=== PATIENT | female | born 1955 | race Caucasian/White ===

== ENCOUNTER 2016-07-27 09:53 | Emergency (ER) | payer OTHER ==
[~2016-07-27] VITALS: Ht 152.4 cm; Wt 86.0 kg
[~2016-07-27 09:53] MED LIST: CYCL1PAK PO; INSULIN SQ; IPRAAER IN; LACT PO; LAMO100 PO; LISI-357 PO; NEUR800T PO; PARO40TA PO; RISP3 PO; SIMV20 PO; TRAD5TAB PO
[2016-07-27 09:55] VITALS: BP 176/84; PULSE 88; RESP 15; TEMP 98.2; O2SAT 96
--- NOTE | 2016-07-27 10:32 | PD ---
HPI Chief Complaint: Cold / Flu Symptoms Time Seen by Provider: 10:25 Travel History International Travel<30 days: No Contact w/Intl Traveler<30days: No Traveled to known affect area: No History of Present Illness HPI 61-year-old female coming in with 3 week history of increasing cough, wheeze, and generalized weakness. Patient states she's had low-grade fevers and chills off and on. She is having a productive cough of brown mucus now. Patient has history of asthma and COPD but is nonsmoker. Patient is also type II diabetic treated with NovoLog on a sliding scale. Patient uses albuterol and another steroid inhaler she cannot remember. Patient also has had headache , postnasal drip, and ear pain. She has had sore throat for cough. He denies chest pain except for soreness from coughing. She has no nausea, vomiting, or diarrhea. She is allergic to aspirin, codeine, and penicillin. PFSH Past Medical History Hx Anticoagulant Therapy: Yes (COUMADIN) Arthritis: Yes (BILATERAL KNEES AND INDEX FINGER ON R HAND - ARTHRITIS) Asthma: Yes Bipolar Disorder: Yes Anxiety: Yes Depression: Yes Heart Rhythm Problems: No Cardiac Catheterization: No Cardiovascular Problems: Yes High Cholesterol: Yes Congestive Heart Failure: No Diabetes: Yes (INSULIN DEPENDENT) Diminished Hearing: No Diverticulitis: Yes Gastrointestinal Disorders: Yes (HX OF DIVERTICULITIS) GERD: Yes Genitourinary: Yes (BLADDER REPAIR) Headaches: Yes Kidney Stones: Yes (HAD KIDNEY STONES 10 YEARS AGO) Musculoskeletal: Yes Neurologic: Yes Psychiatric: Yes Respiratory: Yes (COPD) Immunizations Current: No Sleep Apnea: Yes (OCCURS FREQUENTLY...ON A NIGHTLY BASIS) ?: Not : 4 Para: 1 Miscarriage: 3 Past Surgical History Abdominal Surgery: Yes (EXP LAP FOR ADHESIONS X 6) Appendectomy: Yes Cholecystectomy: Yes Coronary Artery Bypass Graft: No Genitourinary Surgery: Yes (BLADDER SURG) Gynecologic Surgery: Yes Hysterectomy: Yes Neurologic Surgery: No Pacemaker: No Other Surgery: Yes Social History Alcohol Use: No Tobacco Use: Yes (305 cigars) Substance Use: No Allergies-Medications (Allergen,Severity, Reaction): Coded Allergies: Codeine (Verified Allergy, Severe, DIFFICULTY BREATHING, 07/27/16) Penicillin (Verified Allergy, Severe, Respiratory Failure, 07/27/16) Aspirin (Verified Adverse Reaction, Severe, Nausea/Vomiting, 07/27/16) Reported Meds & Prescriptions Reported Meds & Active Scripts Active Review of Systems Except as stated in HPI: all other systems reviewed are Neg General / Constitutional: Positive: Fever, Chills Eyes: No: Visual changes HENT: Positive: Headaches, Sore Throat, Rhinitis, Rhinorrhea, Congestion, Earache, No: Vertigo, Lightheadedness, Neck Stiffness, Neck Pain, Gingival Bleeding, Dental Difficulties, Ear Discharge Cardiovascular: No: Chest Pain or Discomfort Respiratory: Positive: Cough, Shortness of Breath, Wheezing, No: Orthopnea, Hemoptysis, Night Sweats, Pleuritic Pain Gastrointestinal: No: Nausea, Vomiting, Diarrhea, Abdominal Pain Genitourinary: No: Dysuria Musculoskeletal: No: Pain Skin: No Rash Neurologic: No: Weakness Psychiatric: No: Depression Endocrine: No: Polydipsia Hematologic/Lymphatic: No: Easy Bruising Physical Exam Narrative GENERAL: Patient appears ill but not septic. SKIN: Warm and no diaphoresis. Mild pallor. Mild decreased turgor. HEAD: Atraumatic. Normocephalic. EYES: Pupils equal and round. No scleral icterus. No injection or drainage. ENT: No nasal bleeding or discharge. Mucous membranes pink and moist. TMs are dull bilaterally but no injection. Patient has moderate sinus tenderness with percussion and palpation. Pharynx appears unremarkable however without injection or cobblestoning, or erythema. Airway is patent. NECK: Trachea midline. Supple and nontender without significant lymphadenopathy. CARDIOVASCULAR: Regular rate and rhythm. RESPIRATORY: No accessory muscle use. Diffuse wheezes to auscultation. No rales or rhonchi except with cough. Breath sounds equal bilaterally. GASTROINTESTINAL: Abdomen soft, non-tender, nondistended. Hepatic and splenic margins not palpable. MUSCULOSKELETAL: Extremities without clubbing, cyanosis, or edema. No obvious deformities. NEUROLOGICAL: Awake and alert. No obvious cranial nerve deficits. Motor grossly within normal limits. Five out of 5 muscle strength in the arms and legs. Normal speech. PSYCHIATRIC: Appropriate mood and affect; insight and judgment normal. Data Data Last Documented VS Vital Signs Date Time Temp Pulse Resp B/P Pulse Ox O2 Delivery O2 Flow Rate FiO2 07/27/16 09:55 98.2 88 15 176/84 96 Orders Complete Blood Count With Diff (07/27/16 10:39) Comprehensive Metabolic Panel (07/27/16 10:39) Chest, Pa & Lat (07/27/16 10:39) Ecg Monitoring (07/27/16 10:39) Iv Access Insert/Monitor (07/27/16 10:39) Oximetry (07/27/16 10:39) Oxygen Administration (07/27/16 10:39) Prednisone (Deltasone) (07/27/16 10:45) Albuterol-Ipratropium Neb (Duoneb Neb) (07/27/16 10:45) Ceftriaxone Inj (Rocephin Inj) (07/27/16 10:45) Azithromycin (Zithromax) (07/27/16 10:45) Labs Laboratory Tests Test 07/27/16 10:20 White Blood Count 7.6 TH/MM3 Red Blood Count 4.85 MIL/MM3 Hemoglobin 15.0 GM/DL Hematocrit 44.0 % Mean Corpuscular Volume 90.6 FL Mean Corpuscular Hemoglobin 31.0 PG Mean Corpuscular Hemoglobin 34.2 % Concent Red Cell Distribution Width 14.2 % Platelet Count 214 TH/MM3 Mean Platelet Volume 9.1 FL Neutrophils (%) (Auto) 64.4 % Lymphocytes (%) (Auto) 27.8 % Monocytes (%) (Auto) 6.5 % Eosinophils (%) (Auto) 0.5 % Basophils (%) (Auto) 0.8 % Neutrophils # (Auto) 4.9 TH/MM3 Lymphocytes # (Auto) 2.1 TH/MM3 Monocytes # (Auto) 0.5 TH/MM3 Eosinophils # (Auto) 0.0 TH/MM3 Basophils # (Auto) 0.1 TH/MM3 CBC Comment DIFF FINAL Differential Comment Sodium Level 138 MEQ/L Potassium Level 4.1 MEQ/L Chloride Level 104 MEQ/L Carbon Dioxide Level 27.4 MEQ/L Anion Gap 7 MEQ/L Blood Urea Nitrogen 9 MG/DL Creatinine 0.77 MG/DL Estimat Glomerular Filtration 76 ML/MIN Rate Random Glucose 241 MG/DL Calcium Level 8.6 MG/DL Total Bilirubin 0.3 MG/DL Aspartate Amino Transf 15 U/L (AST/SGOT) Alanine Aminotransferase 31 U/L (ALT/SGPT) Alkaline Phosphatase 114 U/L Total Protein 6.8 GM/DL Albumin 3.4 GM/DL MDM Medical Decision Making Medical Screen Exam Complete: Yes Emergency Medical Condition: Yes Differential Diagnosis Bronchitis, acute on chronic. Wheezing. Possible pneumonia. Narrative Course Patient is medically stable at time of exam. Random glucose fingerstick is 230. Labs ordered including CBC and CMP. Patient is given 40 mg prednisone by mouth. She is given DuoNeb 3 every 15 minutes. Patient is given azithromycin 100 mg by mouth. Patient is given Rocephin 1000 mg IM. Chest x-ray PA and lateral is ordered. Chest x-ray shows diffuse congestion without obvious pneumonia or atelectasis. Per radiologist. Patient is felt stable to be discharged home with azithromycin 500 mg daily for the next 5 days. Patient is to take prednisone 20 mg daily for the next 7 days. Patient is to use albuterol metered-dose inhaler 2 puffs every 4 hours as needed for wheezing. Patient is to follow with her primary care physician in the next several days to ensure improvement. Patient may return to emergency Department with worsening symptoms if necessary. Diagnosis Primary Impression: Acute wheezy bronchitis Referrals: Primary Care Physician Patient Instructions: General Instructions Additional Instructions: Chest x-ray shows diffuse congestion without obvious pneumonia or atelectasis. Per radiologist. Patient is felt stable to be discharged home with azithromycin 500 mg daily for the next 5 days. Patient is to take prednisone 20 mg daily for the next 7 days. Patient is to use albuterol metered-dose inhaler 2 puffs every 4 hours as needed for wheezing. Patient is to follow with her primary care physician in the next several days to ensure improvement. Patient may return to emergency Department with worsening symptoms if necessary. Med/Other Pt SpecificInfo: Prescription(s) given Disposition: DISCHARGE HOME Condition: Stable Philippe Jean Jul 27, 2016 10:32
[2016-07-27] MEDS ORDERED: AZITHROMYCIN 250 MG TAB PO ONE (10:45)
[2016-07-27] MEDS ORDERED: predniSONE 20 MG TAB PO ONE (10:45)
[2016-07-27] MEDS: RESP: ALBUTEROL 2.5 MG/IPRATROPIUM 0.5 MG NEB (SCH) INH ×2 (11:03→11:04)
[2016-07-27 11:36] LABS: AUTOMATED NEUTROPHIL # 4.9 TH/MM3 (1.8-7.7); BASOPHIL # 0.1 TH/MM3 (0-0.2); BASOPHIL % 0.8 % (0.0-2.0); EOSINOPHIL % 0.5 % (0.0-4.0); HEMO FLAGS DIFF FINAL; LYMPH % 27.8 % (9.0-44.0); LYMPHOCYTE # 2.1 TH/MM3 (1.0-4.8); MEAN CELL VOLUME 90.6 FL (80.0-100.0); MEAN CORPUSCULAR HGB CONC 34.2 % (32.0-36.0); MONO % 6.5 % (0.0-8.0); NEUT % 64.4 % (16.0-70.0); PLATELET COUNT 214 TH/MM3 (150-450); RED BLOOD COUNT 4.85 MIL/MM3 (4.00-5.30); RED CELL DISTRIBUTION WIDTH 14.2 % (11.6-17.2); WHITE BLOOD COUNT 7.6 TH/MM3 (4.0-11.0)
[2016-07-27 11:54] LABS: ANION GAP 7 MEQ/L (5-15); AST (GOT) 15 U/L (15-37); BICARBONATE 27.4 MEQ/L (21.0-32.0); BLOOD UREA NITROGEN 9 MG/DL (7-18); CHLORIDE 104 MEQ/L (98-107); GLOMERULAR FILTRATION RATE 76 ML/MIN (>89); POTASSIUM 4.1 MEQ/L (3.5-5.1); SODIUM (NA) 138 MEQ/L (136-145)
[2016-07-27 12:02] LABS: ALKALINE PHOSPHATASE 114 U/L (45-117); ALT (GPT) 31 U/L (10-53); TOTAL BILIRUBIN ADULT 0.3 MG/DL (0.2-1.0)
--- NOTE | 2016-07-27 12:44 | RADRPT ---
EXAM DATE/TIME: 07/27/2016 11:01 [facility] COMPARISON: CHEST APICAL LORDOTIC ONLY (1VW), July 06, 2014, 18:24. CHEST PA & LAT, July 06, 2014, 17:18. INDICATIONS: Shortness of breath and aching. MEDICAL HISTORY: Chronic obstructive pulmonary disease. SURGICAL HISTORY: None. ENCOUNTER: Initial ACUITY: 3 weeks PAIN SCORE: 2/10 LOCATION: Bilateral chest FINDINGS: There is very mild prominence of the interstitium when compared to the previous study. Minimal apical pleural changes are again seen on the right, less apparent in the interval. Heart is normal. There is no pneumothorax. CONCLUSION: 1. Mild interstitial prominence as described above. 2. Otherwise negative. Niall Rowland MD FACR on July 27, 2016 at 12:12 Board Certified Radiologist. This report was verified electronically.
[2016-07-27] MEDS ORDERED: AZIT500T2 PO (12:48)
[2016-07-27] MEDS ORDERED: PRED20 PO (12:48)
[2016-07-27 12:53] VITALS: BP 162/87
[2016-12-12] MEDS ORDERED: EMPA1TAB PO (10:14)
[2016-12-12] MEDS ORDERED: AMLO10TA2 PO (10:14)
[2016-12-12] MEDS ORDERED: DICL75TA PO (10:14)
[2016-12-12] MEDS ORDERED: VOLT1GEL4 TP (10:14)
[2016-12-12] MEDS ORDERED: LIDO0.1O TP (10:14)
[2016-12-12] MEDS ORDERED: PARO40TA2 PO (10:14)
[2016-12-12] MEDS ORDERED: NOVOLOGSS (10:14)
[2016-12-12] MEDS ORDERED: RISP3TAB2 PO (10:14)
[2016-12-12] MEDS ORDERED: AK-T0.3S EACH EYE (10:14)
[2016-12-12] MEDS ORDERED: METR500T10 PO (10:14)
[2016-12-12] MEDS ORDERED: BUTA1TAB40 PO (10:14)
[2016-12-12] MEDS ORDERED: MUPI2OIN TOPICAL (10:14)
[2016-12-12] MEDS ORDERED: SUMA50TA2 PO (10:14)
[2016-12-12] MEDS ORDERED: NEOM0.1S4 EACH EYE (10:14)
[2016-12-12] MEDS ORDERED: MELO7.5T4 PO (10:14)
[2016-12-12] MEDS ORDERED: MECL-62 PO (10:14)
[2016-12-12] MEDS ORDERED: LAMO100T PO (10:14)
[2016-12-12] MEDS ORDERED: BUPR100T4 PO (10:14)
[2016-12-12] MEDS ORDERED: ATOR20TA15 PO (10:14)
[2016-12-12] MEDS ORDERED: BACT800T5 PO (10:14)
[2016-12-12] MEDS ORDERED: BENZ100 PO (10:14)
[2016-12-12] MEDS ORDERED: GABA300C5 PO (10:14)
[2016-12-12] MEDS ORDERED: VENTAER INH (10:14)
== END 2016-07-27 13:08 | disposition home or self-care (01) ==
LOC: NEPB 09:53
DX: J20.9 Acute bronchitis, unspecified (principal); R06.2 Wheezing; R53.1 Weakness; E11.9 Type 2 diabetes mellitus without complications; H92.03 Otalgia, bilateral; E78.00 Pure hypercholesterolemia, unspecified; G47.30 Sleep apnea, unspecified; Z72.0 Tobacco use; Z79.4 Long term (current) use of insulin; Z79.01 Long term (current) use of anticoagulants; Z87.09 Personal history of other diseases of the respiratory system; Z87.39 Personal history of other diseases of the musculoskeletal system and connective tissue; Z86.59 Personal history of other mental and behavioral disorders; Z86.79 Personal history of other diseases of the circulatory system; Z87.19 Personal history of other diseases of the digestive system; Z87.448 Personal history of other diseases of urinary system; Z86.69 Personal history of other diseases of the nervous system and sense organs
CPT/HCPCS: 71020; 80053; 85025; 94640; 94664; 96372; 99284; J0696; J7512

== ENCOUNTER 2016-08-12 21:40 | Observation (INO) | payer OTHER ==
[~2016-08-12] VITALS: Ht 152.4 cm; Wt 83.0 kg
[~2016-08-12 21:40] MED LIST changes: +AZIT500T2 PO; -CYCL1PAK PO; -INSULIN SQ; -IPRAAER IN; -LACT PO; -LAMO100 PO; -LISI-357 PO; -NEUR800T PO; -PARO40TA PO; +PRED20 PO; -RISP3 PO; -SIMV20 PO; -TRAD5TAB PO
[2016-08-12 21:41] VITALS: BP 126/72; PULSE 84; RESP 16; TEMP 98; O2SAT 95
[2016-08-12 23:03] VITALS: BP 122/74; PULSE 73; RESP 19; O2SAT 95
[2016-08-12 23:53] LABS: ANION GAP 10 MEQ/L (5-15); AST (GOT) 11 U/L (15-37); BICARBONATE 26.1 MEQ/L (21.0-32.0); BLOOD UREA NITROGEN 20 MG/DL (7-18); CHLORIDE 102 MEQ/L (98-107); GLOMERULAR FILTRATION RATE 83 ML/MIN (>89); POTASSIUM 3.8 MEQ/L (3.5-5.1); SODIUM (NA) 138 MEQ/L (136-145)
[2016-08-12 23:55] LABS: AUTOMATED NEUTROPHIL # 5.8 TH/MM3 (1.8-7.7); BASOPHIL # 0.1 TH/MM3 (0-0.2); BASOPHIL % 0.8 % (0.0-2.0); EOSINOPHIL # 0.1 TH/MM3 (0-0.4); EOSINOPHIL % 1.5 % (0.0-4.0); HEMATOCRIT 42.1 % (35.0-46.0); HEMO FLAGS DIFF FINAL; LYMPH % 29.5 % (9.0-44.0); LYMPHOCYTE # 2.8 TH/MM3 (1.0-4.8); MEAN CELL VOLUME 90.4 FL (80.0-100.0); MEAN CORPUSCULAR HGB CONC 34.2 % (32.0-36.0); MONO % 7.5 % (0.0-8.0); NEUT % 60.7 % (16.0-70.0); PLATELET COUNT 244 TH/MM3 (150-450); RED BLOOD COUNT 4.66 MIL/MM3 (4.00-5.30); RED CELL DISTRIBUTION WIDTH 14.8 % (11.6-17.2); WHITE BLOOD COUNT 9.6 TH/MM3 (4.0-11.0)
[2016-08-12 23:57] LABS: APTT (PATIENT) 26.6 SEC (24.3-30.1); INTERNATIONAL NORMALIZED RATIO 0.9 RATIO; PROTHROMBIN TIME - PATIENT 10.3 SEC (9.8-11.6)
[2016-08-12 23:58] LABS: ALKALINE PHOSPHATASE 116 U/L (45-117); ALT (GPT) 28 U/L (10-53); TOTAL BILIRUBIN ADULT 0.3 MG/DL (0.2-1.0)
[2016-08-12 23:59] LABS: CREATINE KINASE 50 U/L (26-192)
[2016-08-13] VITALS (9 sets, daily range): BP systolic 59–151; BP diastolic 62–90; PULSE 65–82; RESP 17–21; TEMP 97.9–98.8; O2SAT 93–95
--- NOTE | 2016-08-13 00:18 | PD ---
HPI Chief Complaint: Fall Time Seen by Provider: 22:40 Travel History International Travel<30 days: No Contact w/Intl Traveler<30days: No Traveled to known affect area: No History of Present Illness HPI The patient is a 61 year old female who presents to the [facility] emergency department with a history of reportedly feeling dizzy yesterday when walking from one trailer to another. The patient reports that she fell onto her left side. The patient reports that she has left-sided rib cage pain since then. She reports that she did not come to the emergency department yesterday for evaluation and she was babysitting at the time. She reports that she is normally unsteady on her feet and uses a walker for assistance, however she did not have her walker with her yesterday. She reports that she did feel lightheaded. She is unsure whether she passed out. She denies having any headache or neck pain. She denies having any extremity pain or deformity. She denies having any numbness or tingling to her extremities or new weakness or extremities today. The patient reports that she does have a chronic history of dyspnea on exertion and shortness of breath related to COPD. She continues to smoke one pack of cigarettes per day. The patient denies any recent fevers, cough, congestion, chest pain, shortness of breath, abdominal pain, vomiting, diarrhea, urinary symptoms, or neurologic symptoms. [facility] Past Medical History Narrative Medical The patient's past medical history is significant for bipolar disorder, anxiety and depression, hypertension, diabetes mellitus, history of COPD, tobacco abuse. Hx Anticoagulant Therapy: Yes (COUMADIN) Arthritis: Yes (BILATERAL KNEES AND INDEX FINGER ON R HAND - ARTHRITIS) Asthma: Yes Bipolar Disorder: Yes Anxiety: Yes Depression: Yes Heart Rhythm Problems: No Cardiac Catheterization: No Cardiovascular Problems: Yes High Cholesterol: Yes Congestive Heart Failure: No COPD: Yes Diabetes: Yes (INSULIN DEPENDENT) Patient Takes Glucophage: No Diminished Hearing: No Diverticulitis: Yes Gastrointestinal Disorders: Yes (HX OF DIVERTICULITIS) GERD: Yes Genitourinary: Yes (BLADDER REPAIR) Headaches: Yes Hypertension: Yes Kidney Stones: Yes (HAD KIDNEY STONES 10 YEARS AGO) Musculoskeletal: Yes (LOWER BACK PAIN) Neurologic: Yes Psychiatric: Yes Respiratory: Yes (COPD) Immunizations Current: No Sleep Apnea: Yes (OCCURS FREQUENTLY...ON A NIGHTLY BASIS) : 4 Para: 1 Miscarriage: 3 Past Surgical History Narrative Surgical The patient's past surgical history is significant for an appendectomy, cholecystectomy, bladder sling, hysterectomy. Abdominal Surgery: Yes (EXP LAP FOR ADHESIONS X 6) Appendectomy: Yes Cholecystectomy: Yes Coronary Artery Bypass Graft: No Genitourinary Surgery: Yes (BLADDER SURG) Gynecologic Surgery: Yes Hysterectomy: Yes Neurologic Surgery: No Pacemaker: No Other Surgery: Yes Social History Alcohol Use: No Tobacco Use: Yes (305 cigars 1PPD) Substance Use: No Allergies-Medications (Allergen,Severity, Reaction): Coded Allergies: Codeine (Verified Allergy, Severe, DIFFICULTY BREATHING, 08/12/16) Penicillin (Verified Allergy, Severe, Respiratory Failure, 08/12/16) Aspirin (Verified Adverse Reaction, Severe, Nausea/Vomiting, 08/12/16) Reported Meds & Prescriptions Reported Meds & Active Scripts Active Reported Mobic (Meloxicam) 7.5 Mg Tab 7.5 Mg PO DAILY Lamictal (Lamotrigine) 200 Mg Tab 200 Mg PO BID Risperidone 3 Mg Tab 3 Mg PO HS Review of Systems Except as stated in HPI: all other systems reviewed are Neg General / Constitutional: No: Fever Eyes: No: Visual changes HENT: Positive: Lightheadedness, No: Headaches Cardiovascular: Positive: Chest Pain or Discomfort Respiratory: Positive: Cough, Shortness of Breath Gastrointestinal: No: Abdominal Pain Genitourinary: No: Dysuria Musculoskeletal: No: Pain Skin: No Rash Neurologic: Positive: Dizziness, No: Weakness, Focal Abnormalities, Change in Mentation, Slurred Speech, Sensory Disturbance Psychiatric: No: Depression Endocrine: No: Polydipsia Hematologic/Lymphatic: No: Easy Bruising Physical Exam Narrative General: The patient is a well-developed well-nourished female who is uncomfortable appearing on examination, holding her left lateral chest. Head and Neck exam: Head is normocephalic atraumatic. Eyes: EOMI, pupils are equal round and reactive to light. Nose: Midline septum with pink mucous membranes Mouth: Dentition unremarkable. Moist mucus membranes. Posterior oropharynx is not erythematous. No tonsillar hypertrophy. Uvula midline. Airway patent. Neck: No palpable lymphadenopathy. No nuchal rigidity. No thyromegaly. Cardiovascular: Regular rate and rhythm without murmurs, gallops, or rubs. No pulse deficit to the extremities. Lungs: Clear to auscultation bilaterally. No wheezes, rhonchi, or rales. The patient has chest wall tenderness on palpation laterally over the anterior axillary line. There is no erythema or ecchymosis. No step-off or crepitus. No flail segment. Abdomen: Soft, without tenderness to palpation in all 4 quadrants of the abdomen. No guarding, rebound, or rigidity. Normal bowel sounds are audible. Extremities: No clubbing, cyanosis, or edema. No calf tenderness on palpation. Back: No spinous process tenderness to palpation. No costovertebral angle tenderness to palpation. Neurologic Exam: Cranial nerves 2-12 were intact on exam. Strength is 5/5 in all 4 extremities. No sensory deficits noted. Skin Exam: No rash noted. Intact skin that is warm and dry. Data Data Last Documented VS Vital Signs Date Time Temp Pulse Resp B/P Pulse Ox O2 Delivery O2 Flow Rate FiO2 08/12/16 23:03 73 19 122/74 95 Room Air 08/12/16 21:41 98.0 Orders Electrocardiogram (08/12/16 23:19) Complete Blood Count With Diff (08/12/16 23:19) Comprehensive Metabolic Panel (08/12/16 23:19) Creatine Kinase (Cpk) (08/12/16 23:19) Ckmb (Isoenzyme) Profile (08/12/16 23:19) Troponin I (08/12/16 23:19) B-Type Natriuretic Peptide (08/12/16 23:19) Prothrombin Time / Inr (Pt) (08/12/16 23:19) Act Partial Throm Time (Ptt) (08/12/16 23:19) Lipase (08/12/16 23:19) Urinalysis - C+S If Indicated (08/12/16 23:19) D-Dimer (08/12/16 23:19) Magnesium (Mg) (08/12/16 23:19) Ct Brain W/O Iv Contrast(Rout) (08/12/16 23:19) Iv Access Insert/Monitor (08/12/16 23:19) Ecg Monitoring (08/12/16 23:19) Oximetry (08/12/16 23:19) Ribs, Uni (W/Exp Cxr-Min 3vw) (08/12/16 ) Admit Order (Ed Use Only) (08/13/16 01:08) Labs Laboratory Tests Test 08/12/16 23:15 White Blood Count 9.6 TH/MM3 Red Blood Count 4.66 MIL/MM3 Hemoglobin 14.4 GM/DL Hematocrit 42.1 % Mean Corpuscular Volume 90.4 FL Mean Corpuscular Hemoglobin 31.0 PG Mean Corpuscular Hemoglobin 34.2 % Concent Red Cell Distribution Width 14.8 % Platelet Count 244 TH/MM3 Mean Platelet Volume 9.2 FL Neutrophils (%) (Auto) 60.7 % Lymphocytes (%) (Auto) 29.5 % Monocytes (%) (Auto) 7.5 % Eosinophils (%) (Auto) 1.5 % Basophils (%) (Auto) 0.8 % Neutrophils # (Auto) 5.8 TH/MM3 Lymphocytes # (Auto) 2.8 TH/MM3 Monocytes # (Auto) 0.7 TH/MM3 Eosinophils # (Auto) 0.1 TH/MM3 Basophils # (Auto) 0.1 TH/MM3 CBC Comment DIFF FINAL Differential Comment Sodium Level 138 MEQ/L Potassium Level 3.8 MEQ/L Chloride Level 102 MEQ/L Carbon Dioxide Level 26.1 MEQ/L Anion Gap 10 MEQ/L Blood Urea Nitrogen 20 MG/DL Creatinine 0.72 MG/DL Estimat Glomerular Filtration 83 ML/MIN Rate Random Glucose 195 MG/DL Calcium Level 8.6 MG/DL Magnesium Level 2.0 MG/DL Total Bilirubin 0.3 MG/DL Aspartate Amino Transf 11 U/L (AST/SGOT) Alanine Aminotransferase 28 U/L (ALT/SGPT) Alkaline Phosphatase 116 U/L Total Creatine Kinase 50 U/L Troponin I LESS THAN 0.02 NG/ML Total Protein 6.4 GM/DL Albumin 3.3 GM/DL Lipase 146 U/L Prothrombin Time 10.3 SEC Prothromb Time International 0.9 RATIO Ratio Activated Partial 26.6 SEC Thromboplast Time D-Dimer Quantitative (PE/DVT) 0.20 MG/L FEU B-Type Natriuretic Peptide 8 PG/ML MDM Medical Decision Making Medical Screen Exam Complete: Yes Emergency Medical Condition: Yes Medical Record Reviewed: Yes Interpretation(s) Last Impressions Carotid Artery Ultrasound 08/13/16 0000 Signed Impressions: Service Date/Time: Saturday, August 13, 2016 10:15 - CONCLUSION: Negative examination for a hemodynamically significant carotid stenosis. Niall Rowland MD Head CT 08/12/16 2319 Signed Impressions: Service Date/Time: Friday, August 12, 2016 23:53 - CONCLUSION: 1. No acute findings. Cortical volume loss. Jacinto Love MD Ribs X-Ray 08/12/16 0000 Signed Impressions: Service Date/Time: Friday, August 12, 2016 23:38 - CONCLUSION: Normal examination for a patient of this age. Jacinto Love MD Differential Diagnosis Vasovagal syncope, versus orthostasis, versus cardiac arrhythmia, versus acute coronary syndrome Narrative Course During the course of the patients emergency department visit, the patients history, examination, and differential diagnosis were reviewed with the patient. The patient had IV access obtained and blood work sent for analysis. The patient was placed on a cardiac rehabilitation program director with oximetry and blood pressure monitoring. An EKG was done on arrival. The patient's EKG shows a sinus rhythm heart rate of 70, no acute ST segment elevation or depression, T waves are inverted in V1. The patient was provided normal saline a 500 mL bolus times one. Lortab 5 mg by mouth 1. The patients laboratory studies were reviewed and remarkable for a CBC that is unremarkable, CMP is remarkable for a BUN of 20, glucose 195, AST 11, initial set of cardiac enzymes are negative, lipase 146, BNP is 8, PT PTT unremarkable, d-dimer is 0.20 decreasing the likelihood of pulmonary embolism in this patient with no other significant risk factors, urinalysis shows 300 glucose small soup Radiology studies were reviewed and remarkable for a CT scan of the brain shows no acute abnormality, rib series shows no evidence of fracture or pneumothorax. The patient will be admitted to the hospital for evaluation and treatment of syncope. The patients results were discussed with the patient, including the plan of care. I explained that further testing and/ or monitoring is indicated based on the patients history, examination, and/ or laboratory findings. Therefore, I recommended admission for additional evaluation. The patient expressed understanding and was agreeable with this plan. The patient was admitted to the hospital in stable condition and [facility] Physician Communication Physician Communication The patient's case was discussed with Dr. Connell who did agree to admit the patient for further evaluation and treatment at this time. Diagnosis Primary Impression: Syncope Qualified Code: R55 - Syncope, unspecified syncope type Additional Impression: Left-sided chest wall pain Admitting Information Admitting Physician Requests: Case Management Scripts Lidocaine Patch 12 HR 5 % Patch1 Patch TOPICAL DAILY PRN (PAIN) #1 BOX Ref 0 Remove patch after 12 hours Prov:Nehemias Rubin 08/14/16 Metformin (Glucophage)850 Mg [id number] Mg PO BIDPC #60 TAB Prov:Nehemias Rubin 08/14/16 Aubrie Nelson MD Aug 13, 2016 00:18
--- NOTE | 2016-08-13 00:21 | RADRPT ---
EXAM DATE/TIME: 08/12/2016 23:38 [facility] COMPARISON: No previous studies available for comparison. INDICATIONS : Patient states she fell yesterday, left side anterior rib pain. MEDICAL HISTORY : Chronic obstructive pulmonary disease. SURGICAL HISTORY : None. ENCOUNTER: Initial ACUITY: 2 days PAIN SCORE: 9/10 LOCATION: Bilateral chest FINDINGS: Multiple views of the left ribs were performed. There is no evidence of displaced fracture. No dest ructive lesions or areas of periosteal thickening are seen. Expiratory view of the chest is negative for pneumothorax. The mediastinal structures are midline. CONCLUSION: Normal examination for a patient of this age. Jacinto Love MD on August 13, 2016 at 0:10 Board Certified Radiologist. This report was verified electronically.
--- NOTE | 2016-08-13 00:28 | RADRPT ---
EXAM DATE/TIME: 08/12/2016 23:53 [facility] COMPARISON: No previous studies available for comparison. INDICATIONS : Patient had an episode of dizziness and fell yesterday. RADIATION DOSE: 56.35 CTDIvol (mGy) MEDICAL HISTORY : Diabetes mellitus type 2. Chronic obstructive pulmonary disease. Hypertension. SURGICAL HISTORY : None. ENCOUNTER: Initial ACUITY: 1 day PAIN SCALE: 5/10 LOCATION: cranial TECHNIQUE: Multiple contiguous axial images were obtained of the head. Using automated exposure control and adj ustment of the mA and/or kV according to patient size, radiation dose was kept as low as reasonably a chievable to obtain optimal diagnostic quality images. FINDINGS: CEREBRUM: The ventricles are normal for age. No evidence of midline shift, mass lesion, hemorrhage or acute in farction. No extra-axial fluid collections are seen. POSTERIOR FOSSA: The cerebellum and brainstem are intact. The 4th ventricle is midline. The cerebellopontine angle i s unremarkable. EXTRACRANIAL: The visualized portion of the orbits is intact. SKULL: The calvaria is intact. No evidence of skull fracture. CONCLUSION: 1. No acute findings. Cortical volume loss. Jacinto Love MD on August 13, 2016 at 0:20 Board Certified Radiologist. This report was verified electronically.
[2016-08-13] MEDS ORDERED: SODIUM CHLORID 0.9% 500 ML INJ 500 ML IV ONE (01:30)
[2016-08-13] MEDS ORDERED: SODIUM CHLORIDE 0.9% FLUSH 5 ML FLUSH FLUSH PRN (01:30)
[2016-08-13] MEDS ORDERED: BISACODYL 10 MG SUPP PR PRN (01:30)
[2016-08-13] MEDS ORDERED: ACETAMINOPHEN/HYDROcodone 325 MG/5 MG TAB PO ONE (01:30)
[2016-08-13] MEDS ORDERED: ACETAMINOPHEN 325 MG TAB PO PRN (01:30)
[2016-08-13] MEDS ORDERED: ONDANSETRON HCL 4 MG/2 ML VIAL IVP PRN (01:30)
[2016-08-13] MEDS: SODIUM CHLOR 0.9% 1000 ML INJ 1,000 ML IV SCH ×3 (01:57→19:55)
[2016-08-13 02:27] LABS: BLOOD, URINE NEG (NEG); GLUCOSE,URINE 300 mg/dL (NEG); HYALINE CAST, URINE 1 /lpf (RARE); KETONE, URINE TRACE mg/dL (NEG); MUCUS URINE FEW /lpf (OCC); NITRITE,URINE NEG (NEG); PH, URINE 5.5 (5.0-8.5); RENAL EPITHELIAL CELLS <1 /hpf; SQUAMOUS EPITHELIAL CELL URINE 2 /hpf (0-5); TRANSITIONAL EPI CELLS, URINE <1 /hpf; URINE COLOR YELLOW (YELLW/STRAW)
[2016-08-13 02:28] LABS: COMMENT (UR) CULT NOT INDICATED; CULTURE IF INDICATED CULT NOT INDICATED
--- NOTE | 2016-08-13 03:14 | HHI.HP ---
HPI Service [facility] Primary Care Physician Non-Staff Admission Diagnosis syncope, left sided chest wall pain Diagnoses: (1) Syncope Diagnosis: Principal (2) Chest pain Diagnosis: Principal (3) Dehydration Diagnosis: Principal (4) DM (diabetes mellitus) Diagnosis: Principal (5) Tobacco abuse Diagnosis: Principal Travel History International Travel<30 Days: No Contact w/Intl Traveler <30 Da: No Traveled to Known Affected Are: No History of Present Illness This is a 61-year-old female with a PMH of HTN, Anxiety, Depression, Bipolar Disorder, DM, Tobacco Abuse and COPD who presented to the ER after syncopal episode. States had episode of dizziness while walking w/ apparent syncope. Pt entirely unsure if she had LOC. No head trauma reported. Denies fever, chills or cough but notes substernal chest pressure now resolved. On arrival, BP 126/72, HR 84, O2 sat 95% on RA, Afebrile. CBC unremarkable. Chemistry essentially unremarkable except for BUN 20. UA with small LE. Rib X-ray negative. CT Head with no acute findings. Review of Systems Except as stated in HPI: all other systems reviewed are Neg ROS: 14 point review of systems otherwise negative. Past Family Social History Past Medical History PMH: HTN, Anxiety, Depression, Bipolar Disorder, DM, Tobacco Abuse and COPD Past Surgical History PAST SURGICAL HISTORY: Appendectomy, Cholecystectomy, Bladder Sling, Hysterectomy Allergies: Coded Allergies: Codeine (Verified Allergy, Severe, DIFFICULTY BREATHING, 08/12/16) Penicillin (Verified Allergy, Severe, Respiratory Failure, 08/12/16) Aspirin (Verified Adverse Reaction, Severe, Nausea/Vomiting, 08/12/16) Family History PAST FAMILY HISTORY: Reviewed. No h/o DM or CAD Social History PAST SOCIAL HISTORY: Negative for alcohol or drugs. Smokes 1ppd. Physical Exam Vital Signs Vital Signs Date Time Temp Pulse Resp B/P Pulse Ox O2 Delivery O2 Flow Rate FiO2 08/13/16 01:46 75 21 139/69 95 Room Air 08/12/16 23:03 73 19 122/74 95 Room Air 08/12/16 21:41 98.0 84 16 126/72 95 Room Air Physical Exam PE: GENERAL: Middle-aged female in no acute distress. HEENT: PERRLA, EOMI. No scleral icterus or conjunctival pallor. No lid lag or facial droop. CARDIOVASCULAR: Regular rate and rhythm. No obvious murmurs to auscultation. No chest tenderness to palpation. RESPIRATORY: No obvious rhonchi or wheezing. Clear to auscultation. Breath sounds equal bilaterally. GASTROINTESTINAL: Abdomen soft, non-tender, nondistended. BS normal. MUSCULOSKELETAL: Extremities without clubbing, cyanosis, or edema. No obvious deformities. NEUROLOGICAL: Awake, alert and oriented x4. No focal neurologic deficits. Moving both upper and lower extremities spontaneously. Laboratory Laboratory Tests Test 08/12/16 08/13/16 23:15 01:50 White Blood Count 9.6 Red Blood Count 4.66 Hemoglobin 14.4 Hematocrit 42.1 Mean Corpuscular Volume 90.4 Mean Corpuscular Hemoglobin 31.0 Mean Corpuscular Hemoglobin 34.2 Concent Red Cell Distribution Width 14.8 Platelet Count 244 Mean Platelet Volume 9.2 Neutrophils (%) (Auto) 60.7 Lymphocytes (%) (Auto) 29.5 Monocytes (%) (Auto) 7.5 Eosinophils (%) (Auto) 1.5 Basophils (%) (Auto) 0.8 Neutrophils # (Auto) 5.8 Lymphocytes # (Auto) 2.8 Monocytes # (Auto) 0.7 Eosinophils # (Auto) 0.1 Basophils # (Auto) 0.1 CBC Comment DIFF FINAL Differential Comment Sodium Level 138 Potassium Level 3.8 Chloride Level 102 Carbon Dioxide Level 26.1 Anion Gap 10 Blood Urea Nitrogen 20 Creatinine 0.72 Estimat Glomerular Filtration 83 Rate Random Glucose 195 Calcium Level 8.6 Magnesium Level 2.0 Total Bilirubin 0.3 Aspartate Amino Transf 11 (AST/SGOT) Alanine Aminotransferase 28 (ALT/SGPT) Alkaline Phosphatase 116 Total Creatine Kinase 50 Troponin I LESS THAN 0.02 Total Protein 6.4 Albumin 3.3 Lipase 146 Prothrombin Time 10.3 Prothromb Time International 0.9 Ratio Activated Partial 26.6 Thromboplast Time D-Dimer Quantitative (PE/DVT) 0.20 B-Type Natriuretic Peptide 8 Urine Color YELLOW Urine Turbidity CLEAR Urine pH 5.5 Urine Specific Beyer 1.023 Urine Protein NEG Urine Glucose (UA) 300 Urine Ketones TRACE Urine Occult Blood NEG Urine Nitrite NEG Urine Bilirubin NEG Urine Urobilinogen LESS THAN 2.0 Urine Leukocyte Esterase SMALL Urine RBC 1 Urine WBC 2 Urine Squamous Epithelial 2 Cells Urine Transitional Epithelial <1 Cells Urine Renal Epithelial Cells <1 Urine Hyaline Casts 1 Urine Mucus FEW Microscopic Urinalysis Comment CULT NOT INDICATED Result Diagram: 08/12/16231408/12/162314 Assessment and Plan Problem List: (1) Syncope ICD Code: R55 Status: Acute (2) Dehydration ICD Code: E86.0 Status: Acute (3) Chest pain ICD Code: R07.9 Status: Acute (4) Tobacco abuse ICD Code: Z72.0 Status: Acute (5) DM (diabetes mellitus) ICD Code: E11.9 Status: Acute Assessment and Plan A/P: 1. Syncope: reports dizziness/lightheadedness while walking w/ possible syncopal event. No head trauma reported. CT Head w/ no acute findings, images reviewed by me. Syncope likely vasovagal from dehydration, however will admit for Observation, telemetry, obtain further cardiac work up. Check Echo. 2. Chest Pain: acute onset of chest pain after syncopal event, now resolved. Initial trop negative, EKG w/ no acute changes. CXR w/ no acute findings, images reviewed by me. Check serial cardiac enzymes for trend. 3. Dehydration: BUN 20, GFR 83, U/a w/ small LE, IVF for hydration, repeat labs in am. 4. Tobacco Abuse: Counselled. Ativan prn. No NicoDerm to avoid vasoconstriction. 5. DM: H/o DM however not on home medications. BS 195. Check Hgb A1c. Sliding scale w/ Accu-Cheks. 6. DVT Prophylaxis: SCD/Teds. 7. Social work for d/c planning as needed. 8. Case discussed w/ ER physician at length. Problem Qualifiers (1) Syncope: Qualified Code: R55 - Syncope, unspecified syncope type Dinora Connell MD Aug 13, 2016 03:14
[2016-08-13] MEDS ORDERED: GLUCAGON 1 MG/ML VIAL OTHER PRN (03:15)
[2016-08-13] MEDS ORDERED: DEXTROSE 50% IN WATER 50 ML VIAL(D50) IV PUSH PRN (03:15)
[2016-08-13 05:34] LABS: AUTOMATED NEUTROPHIL # 4.5 TH/MM3 (1.8-7.7); BASOPHIL # 0.1 TH/MM3 (0-0.2); BASOPHIL % 0.7 % (0.0-2.0); EOSINOPHIL # 0.2 TH/MM3 (0-0.4); EOSINOPHIL % 2.2 % (0.0-4.0); HEMATOCRIT 39.5 % (35.0-46.0); HEMO FLAGS DIFF FINAL; LYMPH % 35.8 % (9.0-44.0); LYMPHOCYTE # 3.1 TH/MM3 (1.0-4.8); MEAN CELL VOLUME 90.9 FL (80.0-100.0); MEAN CORPUSCULAR HEMOGLOBIN 30.9 PG (27.0-34.0); MONO % 8.7 % (0.0-8.0); NEUT % 52.6 % (16.0-70.0); PLATELET COUNT 221 TH/MM3 (150-450); RED BLOOD COUNT 4.35 MIL/MM3 (4.00-5.30); RED CELL DISTRIBUTION WIDTH 14.8 % (11.6-17.2); WHITE BLOOD COUNT 8.6 TH/MM3 (4.0-11.0)
[2016-08-13] MEDS: MORPHINE SULFATE 4 MG/ML INJ IV PRN ×2 (05:36→23:03)
[2016-08-13 06:02] LABS: ALT (GPT) 25 U/L (10-53); ANION GAP 9 MEQ/L (5-15); AST (GOT) 10 U/L (15-37); BLOOD UREA NITROGEN 16 MG/DL (7-18); CHLORIDE 107 MEQ/L (98-107); GLOMERULAR FILTRATION RATE 85 ML/MIN (>89); POTASSIUM 3.6 MEQ/L (3.5-5.1); SODIUM (NA) 141 MEQ/L (136-145)
[2016-08-13 06:06] LABS: ALKALINE PHOSPHATASE 95 U/L (45-117); TOTAL BILIRUBIN ADULT 0.4 MG/DL (0.2-1.0)
[2016-08-13] MEDS: INSULIN ASPART SUPPLEMENTAL SCALE SQ SCH ×4 (06:32→20:10)
[2016-08-13] MEDS: SODIUM CHLORIDE 0.9% FLUSH 5 ML FLUSH FLUSH SCH ×2 (09:00→19:55)
--- NOTE | 2016-08-13 10:02 | HHI.PR ---
Subjective Remarks Follow-up for syncope. The patient states that she was walking short distances yesterday, felt dizzy, and fell onto her left side. She continues to complain of left-sided chest wall discomfort since her fall. She states she still feeling a little dizzy whenever she sits and stands up,, but has been ambulating a little. She normally uses a walker at home to ambulate. Objective Vitals Vital Signs Date Time Temp Pulse Resp B/P Pulse Ox O2 Delivery O2 Flow Rate FiO2 08/13/16 07:39 97.9 77 17 139/75 95 08/13/16 04:23 77 08/13/16 03:03 98.8 82 18 131/73 95 08/13/16 01:46 75 21 139/69 95 Room Air 08/12/16 23:03 73 19 122/74 95 Room Air 08/12/16 21:41 98.0 84 16 126/72 95 Room Air I/O 08/12/16 08/12/16 08/12/16 08/13/16 08/13/16 08/13/16 07:00 15:00 23:00 07:00 15:00 23:00 Intake Total 640 ml Balance 640 ml Intake Oral 240 ml IV Total 400 ml # Voids 1 Result Diagram: 08/13/16 0508 08/13/16 0508 Imaging Last Impressions Head CT 08/12/16 2319 Signed Impressions: Service Date/Time: Friday, August 12, 2016 23:53 - CONCLUSION: 1. No acute findings. Cortical volume loss. Jacinto Love MD Ribs X-Ray 08/12/16 0000 Signed Impressions: Service Date/Time: Friday, August 12, 2016 23:38 - CONCLUSION: Normal examination for a patient of this age. Jacinto Love MD Objective Remarks GENERAL: Well-developed well-nourished obese. In no acute distress. SKIN: Warm and dry. No lesions noted. HEENT: Normocephalic. Pupils equal and round. Mucous membranes pink and moist. CARDIOVASCULAR: Regular rate and rhythm. No murmur appreciated. Left chest wall TTP. RESPIRATORY: No accessory muscle use. Clear to auscultation. Breath sounds equal bilaterally. GASTROINTESTINAL: Abdomen soft, non-tender, nondistended. Bowel sounds x4. MUSCULOSKELETAL: No obvious deformities. No clubbing or cyanosis. No edema. NEUROLOGICAL: Awake and alert. No focal neurological deficits. Moves upper and lower extremities spontaneously. Normal speech. Strength 5/5. PSYCHIATRIC: Appropriate mood and affect; insight and judgment normal. A/P Problem List: (1) Syncope ICD Code: R55 Status: Acute (2) Dehydration ICD Code: E86.0 Status: Resolved (3) Chest pain ICD Code: R07.9 Status: Acute (4) Tobacco abuse ICD Code: Z72.0 Status: Chronic (5) DM (diabetes mellitus) ICD Code: E11.9 Status: Chronic Assessment and Plan 61-year-old female with a PMH of HTN, Anxiety, Depression, Bipolar Disorder, DM , Tobacco Abuse and COPD who presented after syncopal/near syncopal episode Syncope: reports dizziness/lightheadedness while walking w/ possible syncopal event. Possibly vasovagal. No head trauma reported. CT Head w/ no acute findings. Check echocardiogram, carotid ultrasound, orthostatics. PT eval. Monitor on telemetry. Chest Pain: Fell on left side after syncopal episode, and pain is reproducible upon palpation, likely musculoskeletal. Trending serial troponins, negative to date. Rib x-ray with no fractures. [place] when necessary. Dehydration: Mild. BUN improved with IVF. Monitor. Tobacco Abuse: Cessation counseling. DM: H/o DM however not on home medications. BS 195/210. Hgb A1c pending. Sliding scale w/ Accu-Cheks. DVT Prophylaxis: SCD/Teds. Discharge Planning Disposition pending clinical course. Possible discharge tomorrow if patient remains stable and workup remains negative. Problem Qualifiers (1) Syncope: Qualified Code: R55 - Syncope, unspecified syncope type (2) Chest pain: Qualified Code: R07.82 - Intercostal pain (3) DM (diabetes mellitus): Qualified Code: E11.65 - Type 2 diabetes mellitus with hyperglycemia, without long-term current use of insulin Nehemias Rubin Aug 13, 2016 10:02
--- NOTE | 2016-08-13 11:15 | RADRPT ---
EXAM DATE/TIME: 08/13/2016 10:15 [place] COMPARISON: No previous studies available for comparison. INDICATIONS : Syncope. MEDICAL HISTORY : Hypercholesterolemia. Renal calculi. Diverticulitis. Diabetic neuropathy. COPD. HTN. Asthma. Sleep ap karla. UTI. Degenerative disc disease. Scoliosis. Diabetes. Bipolar disorder. Depression. Anxiety. Ant icoagulant therapy, Coumadin. SURGICAL HISTORY : Cholecystectomy. Appendectomy. Hysterectomy. Exploratory laproscopy for adhesions x6. Bladder repair. Blood transfusions. ENCOUNTER: Initial ACUITY: 1 day PAIN SCORE: 2/10 LOCATION: Bilateral neck PEAK SYSTOLIC VELOCITIES (cm/sec): ICA/CCA RATIO: Right: 0.5 Left: 0.6 ICA: Right: 79 Left: 57 CCA: Right: 153 Left: 98 ECA: Right: 86 Left: 105 VERTEBRAL: Right: 49 antegrade Left: 81 antegrade Elevated flow velocities and ICA/CCA ratios have been found to correlate with increased degrees of vessel stenosis, calculated as percentage of diameter relative to a normal segment of distal ICA/CCA FINDINGS: RIGHT CAROTID: There is no evidence for a hemodynamically significant carotid stenosis. Minimal int imal hyperplasia is present with scattered calcific plaque. LEFT CAROTID: There is no evidence for a hemodynamically significant carotid stenosis. Minimal inti mal hyperplasia is present with scattered calcific plaque. VERTEBRAL ARTERIES: Flow is antegrade in both vertebral arteries. MISCELLANEOUS: There are no ancillary masses or adenopathy. CONCLUSION: Negative examination for a hemodynamically significant carotid stenosis. Niall Rowland MD FACR Niall Rowland MD FACR on August 13, 2016 at 11:12 Board Certified Radiologist. This report was verified electronically.
[2016-08-13] MEDS: ACETAMINOPHEN/HYDROcodone 325 MG/5 MG TAB PO PRN ×2 (11:55→20:09)
--- NOTE | 2016-08-13 13:34 | EKG ---
Date Performed: 08/13/2016 Time Performed: 00:53:42 PTAGE: 61 years EKG: Sinus rhythm NORMAL ECG Compared to prior tracing no significant change PREVIOUS TRACING : 02/27/2016 22.38 DOCTOR: Preet Kirkpatrick Interpretating Date/Time 08/13/2016 13:32:22
[2016-08-13 16:32] LABS: HEMOGLOBIN A1a 1.1 %; HEMOGLOBIN A1b 1.5 %; HEMOGLOBIN Ao 79.7 %; HEMOGLOBIN F 1.2 %; HEMOGLOBIN LA1C 2.6 %; HEMOGLOBIN P3 4.3 %
--- NOTE | 2016-08-13 20:02 | EC ---
Study Study Date:08/13/2016 STUDY CONCLUSIONS SUMMARY - Left ventricle: The cavity size was normal. Wall thickness was normal. Systolic function was at the lower limits of normal. The estimated ejection fraction was 50%. Wall motion was normal; there were no regional wall motion abnormalities. - Tricuspid valve: Mild regurgitation. - Pericardium, extracardiac: There wastrace pericardial effusion. If LV function is below 40, please consider prescribing an ACEI or ARB or document rationale for non-use. PROCEDURE DATA STUDY STATUS: Elective. Procedure: Transthoracic echocardiography. Image quality was good. Scanning was performed from the parasternal, apical, and subcostal acoustic windows. Study completion: The patient tolerated the procedure well. Transthoracic echocardiography. M-mode, complete 2D, complete spectral Doppler, and color Doppler. Height: Height: 60in. Weight: Weight: 181.6lb. Body mass index: BMI: 35.5kg/m^2. Body surface area: BSA: 1.79m^2. Patient status: Inpatient. CARDIAC ANATOMY LEFT VENTRICLE: The cavity size was normal. Wall thickness was normal. Systolic function was at the lower limits of normal. The estimated ejection fraction was 50%. Wall motion was normal; there were no regional wall motion abnormalities. AORTIC VALVE: Trileaflet; normal thickness leaflets. Doppler: Transvalvular velocity was within the normal range. There was no stenosis. No regurgitation. Valve area: 2.21cm^2 (Vmax). Indexed valve area: 1.23cm^2/m^2 (Vmax). Peak gradient: 13mm Hg (S). AORTA: Aortic root: The aortic root was normal in size. MITRAL VALVE: Structurally normal valve. Doppler: Transvalvular velocity was within the normal range. There was no evidence for stenosis. No regurgitation. Peak gradient: 6mm Hg (D). LEFT ATRIUM: The atrium was normal in size. RIGHT VENTRICLE: The cavity size was normal. Wall thickness was normal. PULMONIC VALVE: Doppler: Transvalvular velocity was within the normal range. There was no evidence for stenosis. No regurgitation. TRICUSPID VALVE: Structurally normal valve. Doppler: Transvalvular velocity was within the normal range. Mild regurgitation. PULMONARY ARTERY: The main pulmonary artery was normal-sized. Systolic pressure was within the normal range. RIGHT ATRIUM: The atrium was normal in size. PERICARDIUM: There wastrace pericardial effusion. SYSTEMIC VEINS: Inferior vena cava: The vessel was normal in size. Patient weight: 181.6lb _Ejection fraction:_ 65-75% _Fractional shortening:_ 32% up to 5Kg 5-11.5Kg 11.6-22.9Kg 23-45Kg 45-57Kg Aortic Root 7-13 <17 13-22 17-27 17-27 LA diam 6-13 <23 24-38 33-47 37-40 RVID 10-17 7-15 7-15 7-18 8-17 LVIDd 12-22 <32 24-38 33-47 37-40 LVPW 2-4 3-6 5-7 6-8 7-8 IVS 2-4 3-6 5-7 6-8 7-8 BASIC MEASUREMENTS ADULT NORMAL Left ventricle LV internal dimension, ED, chordal *42.2 mm 43-52 level, PLAX LV internal dimension, ES, chordal 36.5 mm 23-38 level, PLAX Fractional shortening, chordal level, *14 % >29 PLAX LV posterior wall thickness, ED 8.27 mm IVS/LVPW ratio, ED 1 <1.3 Ventricular septum Septal thickness, ED 8.25 mm Aortic valve Leaflet separation 17 mm 15-26 BASIC MEASUREMENTS ADULT NORMAL Aortic valve Leaflet separation 17 mm 15-26 Aorta Root diameter, ED 25 mm 20-37 Left atrium Anterior-posterior dimension, ES 39 mm 19-40 Anterior-posterior dimension index, ES 2.18 cm/m^2 <2.2 LA/aortic root ratio 1.56 DOPPLER MEASUREMENTS ADULT NORMAL Main pulmonary artery Pressure, S 18 mm Hg =30 Aortic valve Peak velocity, S 182 cm/s Peak gradient, S 13 mm Hg Valve area, Vmax 2.21 cm^2 Valve area index, Vmax 1.23 cm^2/m^2 Mitral valve Peak E-wave velocity 118 cm/s Peak A-wave velocity 85.4 cm/s Deceleration time *257 ms 150-230 Peak gradient, D 6 mm Hg Peak E/A ratio 1.4 Maximal regurgitant velocity 334 cm/s Tricuspid valve Regurgitant peak velocity 191 cm/s Peak RV-RA gradient, S 15 mm Hg Maximal regurgitant velocity 191 cm/s Systemic veins Estimated CVP 10 mm Hg Right ventricle RV pressure, S 25 mm Hg <30 Pulmonic valve Peak velocity, S 130 cm/s LEGEND: Mean values are shown as u=mean value. Asterisk (*) ads values outside specified normal range. Prepared and signed by Ishmael Mendez [id number]
[2016-08-13] MEDS ORDERED: RISP3TAB2 PO (23:55)
[2016-08-13] MEDS ORDERED: MOBI7.5T PO (23:55)
[2016-08-13] MEDS ORDERED: LAMI200T PO (23:55)
[2016-08-14] MEDS: lamoTRIgine 100 MG TAB PO SCH ×2 (01:32→09:05)
[2016-08-14 03:05] VITALS: BP_SYST 141; BP_SYST 176; BP_SYST 179; BP_DIAS 102; BP_DIAS 85; BP_DIAS 99; PULSE 70; RESP 18; TEMP 98.1; O2SAT 95
[2016-08-14] MEDS: ACETAMINOPHEN/HYDROcodone 325 MG/5 MG TAB PO PRN (03:23)
[2016-08-14] MEDS: MORPHINE SULFATE 4 MG/ML INJ IV PRN (05:44)
[2016-08-14] MEDS: INSULIN ASPART SUPPLEMENTAL SCALE SQ SCH ×2 (06:07→12:23)
[2016-08-14 07:40] VITALS: BP_SYST 155; BP_SYST 158; BP_SYST 173; BP_DIAS 79; BP_DIAS 81; PULSE 69; RESP 20; TEMP 98.1; O2SAT 94
[2016-08-14] MEDS ORDERED: MELOXICAM 7.5 MG TAB PO SCH (09:00)
[2016-08-14] MEDS: SODIUM CHLORIDE 0.9% FLUSH 5 ML FLUSH FLUSH SCH (09:00)
[2016-08-14] MEDS ORDERED: metFORMIN HCL 850 MG TAB PO SCH (09:00)
[2016-08-14] MEDS: SODIUM CHLOR 0.9% 1000 ML INJ 1,000 ML IV SCH (09:05)
--- NOTE | 2016-08-14 09:56 | HHI.PR ---
Subjective Remarks Follow-up for near syncope. The patient states that prior to admission she had felt lightheaded like she wanted to pass out, but does not recall any loss of consciousness. She states that she is supposed to use a walker all the time due to poor balance in the past, but at the time of her near syncope she was not using her walker. She denies any chest pain or palpitations prior to falling. She still has some left-sided chest discomfort today. She wants to go home. Objective Vitals Vital Signs Date Time Temp Pulse Resp B/P Pulse Ox O2 Delivery O2 Flow Rate FiO2 08/14/16 07:40 98.1 69 20 158/79 94 173/81 155/79 08/14/16 03:05 98.1 70 18 141/85 95 176/99 179/102 08/13/16 23:22 65 08/13/16 23:08 98.1 69 18 59/ 93 08/13/16 19:45 98.1 72 18 134/66 95 08/13/16 17:08 70 124/69 94 151/90 149/87 08/13/16 15:49 98.2 70 19 138/62 95 08/13/16 14:59 18 Result Diagram: 08/13/16 0508 08/13/16 0508 Imaging Last Impressions Carotid Artery Ultrasound 08/13/16 0000 Signed Impressions: Service Date/Time: Saturday, August 13, 2016 10:15 - CONCLUSION: Negative examination for a hemodynamically significant carotid stenosis. Niall Rowland MD Head CT 08/12/16 2319 Signed Impressions: Service Date/Time: Friday, August 12, 2016 23:53 - CONCLUSION: 1. No acute findings. Cortical volume loss. Jacinto Love MD Ribs X-Ray 08/12/16 0000 Signed Impressions: Service Date/Time: Friday, August 12, 2016 23:38 - CONCLUSION: Normal examination for a patient of this age. Jacinto Love MD Objective Remarks GENERAL: Well-developed well-nourished obese. In no acute distress. SKIN: Warm and dry. No chest wall ecchymosis. HEENT: Normocephalic. Pupils equal and round. Mucous membranes pink and moist. CARDIOVASCULAR: Regular rate and rhythm. No murmur appreciated. Left chest wall TTP. RESPIRATORY: No accessory muscle use. Clear to auscultation. Breath sounds equal bilaterally. GASTROINTESTINAL: Abdomen soft, non-tender, nondistended. Bowel sounds x4. MUSCULOSKELETAL: No obvious deformities. No clubbing or cyanosis. No edema. NEUROLOGICAL: Awake and alert. No focal neurological deficits. Moves upper and lower extremities spontaneously. Normal speech. PSYCHIATRIC: Appropriate mood and affect; insight and judgment normal. A/P Problem List: (1) Syncope ICD Code: R55 Status: Acute (2) Dehydration ICD Code: E86.0 Status: Resolved (3) Chest pain ICD Code: R07.9 Status: Acute (4) Tobacco abuse ICD Code: Z72.0 Status: Chronic (5) DM (diabetes mellitus) ICD Code: E11.9 Status: Chronic Assessment and Plan 61-year-old female with a PMH of HTN, Anxiety, Depression, Bipolar Disorder, DM , Tobacco Abuse and COPD who presented after syncopal/near syncopal episode Syncope/near syncope: reports dizziness/lightheadedness while walking w/ possible syncopal event. Possibly vasovagal. No head trauma reported. CT Head w/ no acute findings. Echocardiogram with normal systolic function. Carotid ultrasound showed no significant stenosis. Non-orthostatic. PT eval, recommended using walker, no restriction. Monitor on telemetry. Chest Pain: Fell on left side after syncopal episode, and pain is reproducible upon palpation, likely musculoskeletal. Serial troponins negative. Rib x-ray with no fractures. Lidoderm patch. Dehydration: Mild. BUN improved with IVF. Monitor. Tobacco Abuse: Cessation counseling. DM: H/o DM however not on home medications. Hemoglobin A1c 9.0. Sliding scale w/ Accu-Cheks. Start metformin. PCP follow-up DVT Prophylaxis: SCD/Teds. Written by Nehemias Rubin, acting as scribe for Dr. Carlson on 08/14/16 at 09:54. Discharge Planning Discharge patient to home Condition on discharge: Improved Diabetic Diet as tolerated Regular activity, Educated on strict walker use Rx written: Lidocaine patch, Metformin Follow-up with primary care physician Attending Statement The documentation accurately reflects the work performed [id number] by or, Dr. Carlson on 08/14/16 at 09:54. Problem Qualifiers (1) Syncope: Qualified Code: R55 - Syncope, unspecified syncope type (2) Chest pain: Qualified Code: R07.82 - Intercostal pain (3) DM (diabetes mellitus): Qualified Code: E11.65 - Type 2 diabetes mellitus with hyperglycemia, without long-term current use of insulin Nehemias Rubin Aug 14, 2016 09:56 Ignacio Carlson MD Aug 20, 2016 00:38
[2016-08-14] MEDS ORDERED: LIDO1PAD52 TOPICAL (09:58)
[2016-08-14] MEDS ORDERED: METF850 PO (09:58)
[2016-08-14] MEDS ORDERED: risperiDONE 3 MG TAB PO SCH (21:00)
[2016-12-12] MEDS ORDERED: EMPA1TAB PO (10:14)
[2016-12-12] MEDS ORDERED: VOLT1GEL4 TP (10:14)
[2016-12-12] MEDS ORDERED: ATOR20TA15 PO (10:14)
[2016-12-12] MEDS ORDERED: DICL75TA PO (10:14)
[2016-12-12] MEDS ORDERED: LIDO0.1O TP (10:14)
[2016-12-12] MEDS ORDERED: MUPI2OIN TOPICAL (10:14)
[2016-12-12] MEDS ORDERED: PARO40TA2 PO (10:14)
[2016-12-12] MEDS ORDERED: RISP3TAB2 PO (10:14)
[2016-12-12] MEDS ORDERED: MECL-62 PO (10:14)
[2016-12-12] MEDS ORDERED: NEOM0.1S4 EACH EYE (10:14)
[2016-12-12] MEDS ORDERED: LAMO100T PO (10:14)
[2016-12-12] MEDS ORDERED: BACT800T5 PO (10:14)
[2016-12-12] MEDS ORDERED: MELO7.5T4 PO (10:14)
[2016-12-12] MEDS ORDERED: NOVOLOGSS (10:14)
[2016-12-12] MEDS ORDERED: AMLO10TA2 PO (10:14)
[2016-12-12] MEDS ORDERED: SUMA50TA2 PO (10:14)
[2016-12-12] MEDS ORDERED: AK-T0.3S EACH EYE (10:14)
[2016-12-12] MEDS ORDERED: METR500T10 PO (10:14)
[2016-12-12] MEDS ORDERED: BUTA1TAB40 PO (10:14)
[2016-12-12] MEDS ORDERED: BUPR100T4 PO (10:14)
[2016-12-12] MEDS ORDERED: GABA300C5 PO (10:14)
[2016-12-12] MEDS ORDERED: VENTAER INH (10:14)
[2016-12-12] MEDS ORDERED: BENZ100 PO (10:14)
== END 2016-08-14 15:09 | disposition home or self-care (01) ==
LOC: NEPE 21:40 → NEDA 08-13 01:10 → NEPHCDU 08-13 02:56
PROVIDERS: ADMIT Internal Medicine; ATTEND Internal Medicine
DX: R55 Syncope and collapse (principal); E11.9 Type 2 diabetes mellitus without complications; I10 Essential (primary) hypertension; J44.9 Chronic obstructive pulmonary disease, unspecified; E86.0 Dehydration; M54.5 Low back pain; E78.00 Pure hypercholesterolemia, unspecified; G47.30 Sleep apnea, unspecified; F31.9 Bipolar disorder, unspecified; J45.909 Unspecified asthma, uncomplicated; K21.9 Gastro-esophageal reflux disease without esophagitis; F17.210 Nicotine dependence, cigarettes, uncomplicated; Z79.4 Long term (current) use of insulin; Z87.442 Personal history of urinary calculi
CPT/HCPCS: 70450; 71101; 80053; 81001; 82550; 82948; 83036; 83690; 83735; 83880; 84484; 85025; 85379; 85610; 85730; 93005; 93306; 93880; 97162; 99285; G0378; G8987; G8988; J1815; J2270; J7030; J7040

== ENCOUNTER 2016-11-09 14:18 | Emergency (ER) | payer OTHER ==
[~2016-11-09] VITALS: Ht 152.4 cm; Wt 90.0 kg
[~2016-11-09 14:18] MED LIST changes: -AZIT500T2 PO; +LAMI200T PO; +LIDO1PAD52 TOPICAL; +METF850 PO; +MOBI7.5T PO; -PRED20 PO; +RISP3TAB2 PO
[2016-11-09 14:20] VITALS: BP 127/82; PULSE 87; RESP 17; TEMP 97.8; O2SAT 94
--- NOTE | 2016-11-09 14:27 | PD ---
Physical Exam Time Seen by Provider: 14:27 Narrative 61 y/o female here for evaluation of abdominal pain which started 3 weeks ago. Feels like previous instance of diverticulitis. Vital signs reviewed. Seen at triage desk. Awaiting bed placement. Data Data Last Documented VS Vital Signs Date Time Temp Pulse Resp B/P Pulse Ox O2 Delivery O2 Flow Rate FiO2 11/09/16 14:20 97.8 87 17 127/82 94 Room Air [facility] Medical Record Reviewed: Yes Supervised Visit with TAHIRA: Brandyn Brown November 09, 2016 14:27
[2016-11-09] MEDS ORDERED: NOVOINJ3 SQ (14:44)
[2016-11-09] MEDS ORDERED: SODIUM CHLOR 0.9% 1000 ML INJ 1,000 ML IV SCH (14:47)
[2016-11-09] MEDS ORDERED: metroNIDAZOLE 500 MG INJ 100 ML IV ONE (15:00)
[2016-11-09] MEDS ORDERED: ONDANSETRON HCL 4 MG/2 ML VIAL IVP ONE (15:00)
[2016-11-09] MEDS ORDERED: CIPROFLOXACIN 400 MG PREMIX 200 ML IV ONE (15:00)
[2016-11-09] MEDS ORDERED: MORPHINE SULFATE 4 MG/ML INJ IV PUSH ONE ×2 (15:00→18:45)
[2016-11-09 15:07] LABS: AUTOMATED NEUTROPHIL # 4.7 TH/MM3 (1.8-7.7); BASOPHIL # 0.1 TH/MM3 (0-0.2); BASOPHIL % 0.8 % (0.0-2.0); EOSINOPHIL # 0.3 TH/MM3 (0-0.4); HEMATOCRIT 41.4 % (35.0-46.0); HEMO FLAGS DIFF FINAL; LYMPH % 33.3 % (9.0-44.0); LYMPHOCYTE # 2.8 TH/MM3 (1.0-4.8); MEAN CORPUSCULAR HEMOGLOBIN 31.1 PG (27.0-34.0); MEAN CORPUSCULAR HGB CONC 34.9 % (32.0-36.0); MONO % 7.8 % (0.0-8.0); NEUT % 55.1 % (16.0-70.0); PLATELET COUNT 328 TH/MM3 (150-450); RED BLOOD COUNT 4.65 MIL/MM3 (4.00-5.30); RED CELL DISTRIBUTION WIDTH 14.1 % (11.6-17.2); WHITE BLOOD COUNT 8.5 TH/MM3 (4.0-11.0)
[2016-11-09 15:10] LABS: BACTERIA, URINE RARE /hpf; BLOOD, URINE TRACE (NEG); COMMENT (UR) CULT NOT INDICATED; CULTURE IF INDICATED CULT NOT INDICATED; GLUCOSE,URINE NEG (NEG); KETONE, URINE NEG (NEG); NITRITE,URINE NEG (NEG); SQUAMOUS EPITHELIAL CELL URINE <1 /hpf (0-5); URINE COLOR LIGHT-YELLOW (YELLW/STRAW)
--- NOTE | 2016-11-09 15:38 | PD ---
HPI Chief Complaint: Abdominal Pain Time Seen by Provider: 15:36 Travel History International Travel<30 days: No Contact w/Intl Traveler<30days: No Traveled to known affect area: No History of Present Illness HPI 61-year-old female that presents to the ED for evaluation of lower abdominal pain. Per patient she's had this for the past 3 weeks. Per patient nothing makes her better. Patient has had diarrhea which initially started as a liquid with no blood and progressively has now changed to more normal. She denies any chest pain or shortness of breath. She states that she went to see her doctor today who sent her here for evaluation of diverticulitis. Per patient she's had this in the past before. She's not been taking anything for it. Per patient she has chills and sweats. Allergies to aspirin, codeine, penicillin. Per patient the pain is 8 out of 10. Only the lower abdomen. No urinary issues. No vaginal discharge. Per patient she had a hysterectomy. PFSH Past Medical History Hx Anticoagulant Therapy: Yes (COUMADIN) Arthritis: Yes (BILATERAL KNEES AND INDEX FINGER ON R HAND - ARTHRITIS) Asthma: Yes Blood Disorders: No Bipolar Disorder: Yes Anxiety: Yes Depression: Yes Heart Rhythm Problems: No Cancer: No Cardiac Catheterization: No Cardiovascular Problems: Yes High Cholesterol: Yes Congestive Heart Failure: No COPD: Yes Diabetes: Yes Patient Takes Glucophage: No Diminished Hearing: No Diverticulitis: Yes Endocrine: Yes Gastrointestinal Disorders: Yes (Diverticulitis, Acid reflux) GERD: Yes Genitourinary: Yes (Bladder repair, frequent UTI's) Headaches: Yes Hypertension: Yes Kidney Stones: Yes (HAD KIDNEY STONES 10 YEARS AGO) Musculoskeletal: Yes (Degenerative disc, Bilateral knees) Neurologic: Yes Psychiatric: Yes Respiratory: Yes Immunizations Current: No Sleep Apnea: Yes Thyroid Disease: No Tetanus Vaccination: < 5 Years : 4 Para: 1 Miscarriage: 3 Past Surgical History Abdominal Surgery: Yes (EXP LAP FOR ADHESIONS X 6) Appendectomy: Yes Cholecystectomy: Yes Coronary Artery Bypass Graft: No Genitourinary Surgery: Yes (BLADDER SURG) Gynecologic Surgery: Yes Hysterectomy: Yes Neurologic Surgery: No Pacemaker: No Other Surgery: Yes (Gallbladder, Hysterectomy, Bladder repair) Social History Alcohol Use: No Tobacco Use: Yes (305 cigars 1PPD) Substance Use: No Allergies-Medications (Allergen,Severity, Reaction): Coded Allergies: Codeine (Verified Allergy, Severe, DIFFICULTY BREATHING, 11/09/16) Penicillin (Verified Allergy, Severe, Respiratory Failure, 11/09/16) Aspirin (Verified Adverse Reaction, Severe, Nausea/Vomiting, 11/09/16) Reported Meds & Prescriptions Reported Meds & Active Scripts Active Ciprofloxacin (Ciprofloxacin HCl) 500 Mg Tab 500 Mg PO BID 10 Days Lortab (Hydrocodone-Acetaminophen) 5-325 Mg Tab 1 Tab PO Q6H PRN Reported Novolog Flexpen Inj (Insulin Aspart) 300 Unit/3 Ml Pen 1 Units SQ Risperidone 3 Mg Tab 3 Mg PO HS Review of Systems Except as stated in HPI: all other systems reviewed are Neg Physical Exam Narrative GENERAL: SKIN: Warm and dry. HEAD: Atraumatic. Normocephalic. EYES: Pupils equal and round. No scleral icterus. No injection or drainage. ENT: No nasal bleeding or discharge. Mucous membranes pink and moist. Tongue is midline. No uvula deviation. NECK: Trachea midline. No JVD. CARDIOVASCULAR: Regular rate and rhythm. No murmurs, S3, S4. RESPIRATORY: No accessory muscle use. Clear to auscultation. Breath sounds equal bilaterally. GASTROINTESTINAL: Abdomen soft, tender to the lower abdomen especially with deep palpation, nondistended. Hepatic and splenic margins not palpable. MUSCULOSKELETAL: Extremities without clubbing, cyanosis, or edema. No obvious deformities. Full range of motion of the upper and lower extremities bilaterally. Pupils pulses bilaterally. NEUROLOGICAL: Awake and alert. No obvious cranial nerve deficits. Motor grossly within normal limits. Five out of 5 muscle strength in the arms and legs. Normal speech. PSYCHIATRIC: Appropriate mood and affect; insight and judgment normal. Data Data Last Documented VS Vital Signs Date Time Temp Pulse Resp B/P Pulse Ox O2 Delivery O2 Flow Rate FiO2 11/09/16 16:58 18 11/09/16 14:20 97.8 87 127/82 94 Room Air Orders Complete Blood Count With Diff (11/09/16 14:47) Comprehensive Metabolic Panel (11/09/16 14:47) Lipase (11/09/16 14:47) Lactic Acid (11/09/16 14:47) Urinalysis - C+S If Indicated (11/09/16 14:47) Ct Abd/Pel W Iv Contrast(Rout) (11/09/16 14:47) Iv Access Insert/Monitor (11/09/16 14:47) Morphine Inj (Morphine Inj) (11/09/16 15:00) Ondansetron Inj (Zofran Inj) (11/09/16 15:00) Ciprofloxacin 400 Mg Premix (Cipro 400 M (11/09/16 15:00) Metronidazole 500 Mg Inj (Flagyl 500 Mg (11/09/16 15:00) Sodium Chlor 0.9% 1000 Ml Inj (Ns 1000 M (11/09/16 14:47) Iohexol 350 Inj (Omnipaque 350 Inj) (11/09/16 16:22) Labs Laboratory Tests Test 11/09/16 11/09/16 14:20 14:50 Urine Color LIGHT-YELLOW Urine Turbidity CLEAR Urine pH 6.0 Urine Specific [place] 1.006 Urine Protein NEG mg/dL Urine Glucose (UA) NEG mg/dL Urine Ketones NEG mg/dL Urine Occult Blood TRACE Urine Nitrite NEG Urine Bilirubin NEG Urine Urobilinogen LESS THAN 2.0 MG/DL Urine Leukocyte Esterase NEG Urine WBC LESS THAN 1 /hpf Urine Squamous Epithelial <1 /hpf Cells Urine Bacteria RARE /hpf Microscopic Urinalysis Comment CULT NOT INDICATED White Blood Count 8.5 TH/MM3 Red Blood Count 4.65 MIL/MM3 Hemoglobin 14.4 GM/DL Hematocrit 41.4 % Mean Corpuscular Volume 89.0 FL Mean Corpuscular Hemoglobin 31.1 PG Mean Corpuscular Hemoglobin 34.9 % Concent Red Cell Distribution Width 14.1 % Platelet Count 328 TH/MM3 Mean Platelet Volume 8.1 FL Neutrophils (%) (Auto) 55.1 % Lymphocytes (%) (Auto) 33.3 % Monocytes (%) (Auto) 7.8 % Eosinophils (%) (Auto) 3.0 % Basophils (%) (Auto) 0.8 % Neutrophils # (Auto) 4.7 TH/MM3 Lymphocytes # (Auto) 2.8 TH/MM3 Monocytes # (Auto) 0.7 TH/MM3 Eosinophils # (Auto) 0.3 TH/MM3 Basophils # (Auto) 0.1 TH/MM3 CBC Comment DIFF FINAL Differential Comment Sodium Level 136 MEQ/L Potassium Level 4.3 MEQ/L Chloride Level 102 MEQ/L Carbon Dioxide Level 27.4 MEQ/L Anion Gap 7 MEQ/L Blood Urea Nitrogen 11 MG/DL Creatinine 0.58 MG/DL Estimat Glomerular Filtration 106 ML/MIN Rate Random Glucose 243 MG/DL Lactic Acid Level 1.5 mmol/L Calcium Level 8.3 MG/DL Total Bilirubin 0.2 MG/DL Aspartate Amino Transf 15 U/L (AST/SGOT) Alanine Aminotransferase 26 U/L (ALT/SGPT) Alkaline Phosphatase 149 U/L Total Protein 6.6 GM/DL Albumin 3.1 GM/DL Lipase 108 U/L MDM Medical Decision Making Medical Screen Exam Complete: Yes Emergency Medical Condition: Yes Medical Record Reviewed: Yes Interpretation(s) UA negative cCBC Diagram 11/09/16 14:50 BMP Diagram 11/09/16 14:[address]ts [address] lip[address] WNL CT of the abdomen and pelvis showed diverticula but no diverticulitis. Possible consolidation to the lower lungs, fat hernia. Differential Diagnosis Lower abdominal pain versus pancreatitis versus diverticulitis versus gastroenteritis versus colitis Narrative Course 61-year-old female that presents to the ED for evaluation of lower abdominal pain. Patient was properly examined and was found to have signs and symptoms consistent appears to be very possible diverticulitis. Labs and imaging ordered. Labs and imaging showed no sign of acute disease. Possible pneumonia noted. At this time I recommend treatment with Cipro to cover for both the pneumonia and possible GI bug. Recommendation is for close follow with PCP. Patient was given Lortab for pain. Drinking fluids. See ED for any worsening symptoms. Follow with PCP. Diagnosis Primary Impression: Abdominal pain Qualified Code: R10.30 - Lower abdominal pain Additional Impression: Pneumonia Qualified Code: J18.1 - Pneumonia of lower lobe due to infectious organism, unspecified laterality Patient Instructions: General Instructions Additional Instructions: Take medications as prescribed. Follow-up with PCP. See ED for any worsening symptoms. Do not drink or drive while taking pain medication. Apply ice or heat as needed for pain Drink plenty of fluids. Med/Other Pt SpecificInfo: Prescription(s) given Scripts Ciprofloxacin 500 Mg Pno465 Mg PO BID 10 Days Ref 0 Prov:Nomi Meza MD 11/09/16 Hydrocodone-Acetaminophen (Lortab)5-325 Mg Tab1 Tab PO Q6H PRN (PAIN) #15 TAB Prov:Nomi Meza MD 11/09/16 Disposition: 01 DISCHARGE HOME Condition: Stable Jason German November 09, 2016 15:38
[2016-11-09 15:39] LABS: ALT (GPT) 26 U/L (10-53); ANION GAP 7 MEQ/L (5-15); AST (GOT) 15 U/L (15-37); BICARBONATE 27.4 MEQ/L (21.0-32.0); BLOOD UREA NITROGEN 11 MG/DL (7-18); CHLORIDE 102 MEQ/L (98-107); GLOMERULAR FILTRATION RATE 106 ML/MIN (>89); POTASSIUM 4.3 MEQ/L (3.5-5.1); SODIUM (NA) 136 MEQ/L (136-145)
[2016-11-09 15:41] LABS: ALKALINE PHOSPHATASE 149 U/L (45-117); TOTAL BILIRUBIN ADULT 0.2 MG/DL (0.2-1.0)
[2016-11-09] MEDS ORDERED: IOHEXOL 350 MG/ML 10 ML VIAL (for RAD DIAG) IV ONE (16:22)
--- NOTE | 2016-11-09 17:05 | RADRPT ---
EXAM DATE/TIME: 11/09/2016 16:15 [facility] COMPARISON: No previous studies available for comparison. INDICATIONS : Lower abdominal pain for three weeks. IV CONTRAST: 93 cc Omnipaque 350 (iohexol) IV ORAL CONTRAST: No oral contrast ingested. RADIATION DOSE: 10.96 CTDIvol (mGy) MEDICAL HISTORY : Diverticulitis. Chronic obstructive pulmonary disease. Hypertension.Diabetes. SURGICAL HISTORY : Appendectomy. Cholecystectomy.Hysterectomy. ENCOUNTER: Initial ACUITY: 3 weeks PAIN SCALE: 5/10 LOCATION: Bilateral lower quadrant TECHNIQUE: Volumetric scanning of the abdomen and pelvis was performed. Using automated exposure control and ad justment of the mA and/or kV according to patient size, radiation dose was kept as low as reasonably achievable to obtain optimal diagnostic quality images. FINDINGS: There is patchy airspace disease at the lung bases. Differential diagnosis includes bronchopneumonia or post-aspiration changes. Trace right pleural fluid. No acute findings in the spleen, adrenals, right kidney or pancreas. Tiny nonobstructing left renal c alculus. Mild fatty liver. Previous cholecystectomy. Previous appendectomy and hysterectomy. Within the lower anterior abdominal wall just above the pubic symphysis is an inferior ventral hernia tion of fat. No bowel herniation is identified. There is a left-sided bladder diverticulum. Colonic d iverticulosis without diverticulitis. CONCLUSION: 1. Ventral hernia containing fat measuring up to 7.4 x 6.3 cm. Fat herniation inferiorly as well into the area of mons pubis. 2. Left-sided bladder diverticulum. Colonic diverticulosis without evidence for diverticulitis. 3. Patchy airspace disease at the lung bases. Differential diagnosis includes pneumonia. Jacinto Love MD on November 09, 2016 at 16:47 Board Certified Radiologist. This report was verified electronically.
[2016-11-09] MEDS ORDERED: HYDR-3533 PO (17:06)
[2016-11-09] MEDS ORDERED: CIPR500T2 PO (17:08)
[2016-11-09 17:10] VITALS: BP 135/79; PULSE 70; RESP 20; O2SAT 99
[2016-12-12] MEDS ORDERED: METR500T10 PO (10:14)
[2016-12-12] MEDS ORDERED: NEOM0.1S4 EACH EYE (10:14)
[2016-12-12] MEDS ORDERED: RISP3TAB2 PO (10:14)
[2016-12-12] MEDS ORDERED: AMLO10TA2 PO (10:14)
[2016-12-12] MEDS ORDERED: BUPR100T4 PO (10:14)
[2016-12-12] MEDS ORDERED: MUPI2OIN TOPICAL (10:14)
[2016-12-12] MEDS ORDERED: SUMA50TA2 PO (10:14)
[2016-12-12] MEDS ORDERED: BUTA1TAB40 PO (10:14)
[2016-12-12] MEDS ORDERED: GABA300C5 PO (10:14)
[2016-12-12] MEDS ORDERED: EMPA1TAB PO (10:14)
[2016-12-12] MEDS ORDERED: PARO40TA2 PO (10:14)
[2016-12-12] MEDS ORDERED: DICL75TA PO (10:14)
[2016-12-12] MEDS ORDERED: MECL-62 PO (10:14)
[2016-12-12] MEDS ORDERED: MELO7.5T4 PO (10:14)
[2016-12-12] MEDS ORDERED: VENTAER INH (10:14)
[2016-12-12] MEDS ORDERED: LIDO0.1O TP (10:14)
[2016-12-12] MEDS ORDERED: BACT800T5 PO (10:14)
[2016-12-12] MEDS ORDERED: VOLT1GEL4 TP (10:14)
[2016-12-12] MEDS ORDERED: BENZ100 PO (10:14)
[2016-12-12] MEDS ORDERED: LAMO100T PO (10:14)
[2016-12-12] MEDS ORDERED: AK-T0.3S EACH EYE (10:14)
[2016-12-12] MEDS ORDERED: NOVOLOGSS (10:14)
[2016-12-12] MEDS ORDERED: ATOR20TA15 PO (10:14)
== END 2016-11-09 19:58 | disposition home or self-care (01) ==
LOC: NEPE 14:18
DX: R10.30 Lower abdominal pain, unspecified (principal); J18.9 Pneumonia, unspecified organism; J44.9 Chronic obstructive pulmonary disease, unspecified; E78.00 Pure hypercholesterolemia, unspecified; E11.9 Type 2 diabetes mellitus without complications; K21.9 Gastro-esophageal reflux disease without esophagitis; I10 Essential (primary) hypertension; Z87.442 Personal history of urinary calculi; G47.30 Sleep apnea, unspecified; Z72.0 Tobacco use; Z79.4 Long term (current) use of insulin; Z79.01 Long term (current) use of anticoagulants
CPT/HCPCS: 74177; 80053; 81001; 83605; 83690; 85025; 96365; 96367; 96375; 96376; 99285; J0744; J2270; J2405; J7030; Q9967

== ENCOUNTER 2016-11-30 23:02 | Emergency (ER) | payer OTHER ==
[~2016-11-30] VITALS: Ht 152.4 cm; Wt 90.0 kg
[~2016-11-30 23:02] MED LIST changes: +CIPR500T2 PO; +HYDR-3533 PO; -LAMI200T PO; -LIDO1PAD52 TOPICAL; -METF850 PO; -MOBI7.5T PO; +NOVOINJ3 SQ
[2016-11-30 23:05] VITALS: BP 142/81; PULSE 77; RESP 16; TEMP 98.5; O2SAT 97
[2016-12-01] MEDS ORDERED: SODIUM CHLORIDE 0.9% FLUSH 10 ML FLUSH IV FLUSH PRN (01:00)
[2016-12-01 01:27] LABS: AUTOMATED NEUTROPHIL # 3.7 TH/MM3 (1.8-7.7); BASOPHIL # 0.1 TH/MM3 (0-0.2); BASOPHIL % 1.2 % (0.0-2.0); EOSINOPHIL # 0.2 TH/MM3 (0-0.4); EOSINOPHIL % 3.2 % (0.0-4.0); HEMATOCRIT 44.2 % (35.0-46.0); HEMO FLAGS DIFF FINAL; LYMPH % 35.5 % (9.0-44.0); LYMPHOCYTE # 2.6 TH/MM3 (1.0-4.8); MEAN CELL VOLUME 89.8 FL (80.0-100.0); MEAN CORPUSCULAR HEMOGLOBIN 31.2 PG (27.0-34.0); MEAN CORPUSCULAR HGB CONC 34.8 % (32.0-36.0); MONO % 9.6 % (0.0-8.0); NEUT % 50.5 % (16.0-70.0); PLATELET COUNT 195 TH/MM3 (150-450); RED BLOOD COUNT 4.92 MIL/MM3 (4.00-5.30); RED CELL DISTRIBUTION WIDTH 15.1 % (11.6-17.2); WHITE BLOOD COUNT 7.4 TH/MM3 (4.0-11.0)
[2016-12-01 01:38] LABS: BLOOD, URINE NEG (NEG); COMMENT (UR) CULT NOT INDICATED; CULTURE IF INDICATED CULT NOT INDICATED; GLUCOSE,URINE NEG (NEG); KETONE, URINE NEG (NEG); MUCUS URINE FEW /lpf (OCC); NITRITE,URINE NEG (NEG); SQUAMOUS EPITHELIAL CELL URINE 1 /hpf (0-5); URINE COLOR YELLOW (YELLW/STRAW)
[2016-12-01 01:50] LABS: ANION GAP 6 MEQ/L (5-15); AST (GOT) 15 U/L (15-37); BICARBONATE 28.7 MEQ/L (21.0-32.0); BLOOD UREA NITROGEN 13 MG/DL (7-18); CHLORIDE 104 MEQ/L (98-107); GLOMERULAR FILTRATION RATE 84 ML/MIN (>89); SODIUM (NA) 139 MEQ/L (136-145)
[2016-12-01 01:53] LABS: ALKALINE PHOSPHATASE 119 U/L (45-117); ALT (GPT) 24 U/L (10-53); TOTAL BILIRUBIN ADULT 0.4 MG/DL (0.2-1.0)
--- NOTE | 2016-12-01 01:56 | PD ---
HPI Chief Complaint: Abdominal Pain Time Seen by Provider: 00:51 Travel History International Travel<30 days: No Contact w/Intl Traveler<30days: No Traveled to known affect area: No History of Present Illness HPI Is a 61-year-old woman who presents to the emergency department complaining of lower abdominal pain. Symptoms started about a month ago. She is a history of abdominal pain in the past. She is extensive surgical history include cholecystectomy, hysterectomy, bladder surgery, appendectomy, and she reports multiple X labs for adhesions and abdominal pain. She is on chronic opiates for her low back pain. She getting worsening lower abdominal pain about a month ago. States she is not getting it daily. Abdominal been normal. She's had nausea but no vomiting. She states she was told when she is not Hospital as that she has a hernia. Review of records show she's had a ventral lower abdominal hernia for years. History Past Medical History Narrative Medical Anxiety/depression/bipolar disorder Hyperlipidemia COPD Diabetes Hypertension Sleep apnea History diverticulitis History of kidney stones Tetanus Vaccination: < 5 Years Influenza Vaccination: No : 4 Para: 1 Social History Alcohol Use: No Tobacco Use: Yes (305 cigars 1PPD) Allergies-Medications (Allergen,Severity, Reaction): Coded Allergies: Codeine (Verified Allergy, Severe, DIFFICULTY BREATHING, 11/09/16) Penicillin (Verified Allergy, Severe, Respiratory Failure, 11/09/16) Aspirin (Verified Adverse Reaction, Severe, Nausea/Vomiting, 11/09/16) Reported Meds & Prescriptions Reported Meds & Active Scripts Active Reported Novolog Flexpen Inj (Insulin Aspart) 300 Unit/3 Ml Pen 1 Units SQ Risperidone 3 Mg Tab 3 Mg PO HS Review of Systems Except as stated in HPI: all other systems reviewed are Neg Physical Exam Narrative GENERAL: 61 year-old woman, no acute distress. SKIN: Focused skin assessment warm/dry. NECK: Trachea midline. No JVD. CARDIOVASCULAR: Regular rate and rhythm. No murmur appreciated. RESPIRATORY: No accessory muscle use. Clear to auscultation. Breath sounds equal bilaterally. GASTROINTESTINAL: Mild lower abdominal tenderness. No rebound or guarding. MUSCULOSKELETAL: No obvious deformities. No clubbing. No cyanosis. No edema. NEUROLOGICAL: Awake and alert. No obvious cranial nerve deficits. Motor grossly within normal limits. Normal speech. PSYCHIATRIC: Appropriate mood and affect; insight and judgment normal. Data Data Last Documented VS Vital Signs Date Time Temp Pulse Resp B/P Pulse Ox O2 Delivery O2 Flow Rate FiO2 11/30/16 23:05 98.5 77 16 142/81 97 Room Air Orders Complete Blood Count With Diff (12/01/16 00:53) Comprehensive Metabolic Panel (12/01/16 00:53) Lipase (12/01/16 00:53) Lactic Acid (12/01/16 00:53) Urinalysis - C+S If Indicated (12/01/16 00:53) Iv Access Insert/Monitor (12/01/16 00:53) NPO (12/01/16 00:53) Sodium Chloride 0.9% Flush (Ns Flush) (12/01/16 01:00) Ct Abd/Pel W Iv Contrast(Rout) (12/01/16 ) Iohexol 350 Inj (Omnipaque 350 Inj) (12/01/16 02:04) Labs Laboratory Tests Test 12/01/16 01:10 White Blood Count 7.4 TH/MM3 Red Blood Count 4.92 MIL/MM3 Hemoglobin 15.4 GM/DL Hematocrit 44.2 % Mean Corpuscular Volume 89.8 FL Mean Corpuscular Hemoglobin 31.2 PG Mean Corpuscular Hemoglobin 34.8 % Concent Red Cell Distribution Width 15.1 % Platelet Count 195 TH/MM3 Mean Platelet Volume 8.6 FL Neutrophils (%) (Auto) 50.5 % Lymphocytes (%) (Auto) 35.5 % Monocytes (%) (Auto) 9.6 % Eosinophils (%) (Auto) 3.2 % Basophils (%) (Auto) 1.2 % Neutrophils # (Auto) 3.7 TH/MM3 Lymphocytes # (Auto) 2.6 TH/MM3 Monocytes # (Auto) 0.7 TH/MM3 Eosinophils # (Auto) 0.2 TH/MM3 Basophils # (Auto) 0.1 TH/MM3 CBC Comment DIFF FINAL Differential Comment Urine Color YELLOW Urine Turbidity CLEAR Urine pH 6.0 Urine Specific [place] 1.013 Urine Protein NEG mg/dL Urine Glucose (UA) NEG mg/dL Urine Ketones NEG mg/dL Urine Occult Blood NEG Urine Nitrite NEG Urine Bilirubin NEG Urine Urobilinogen LESS THAN 2.0 MG/DL Urine Leukocyte Esterase NEG Urine WBC LESS THAN 1 /hpf Urine Squamous Epithelial 1 /hpf Cells Urine Mucus FEW /lpf Microscopic Urinalysis Comment CULT NOT INDICATED Sodium Level 139 MEQ/L Potassium Level 4.0 MEQ/L Chloride Level 104 MEQ/L Carbon Dioxide Level 28.7 MEQ/L Anion Gap 6 MEQ/L Blood Urea Nitrogen 13 MG/DL Creatinine 0.71 MG/DL Estimat Glomerular Filtration 84 ML/MIN Rate Random Glucose 175 MG/DL Lactic Acid Level 1.5 mmol/L Calcium Level 8.6 MG/DL Total Bilirubin 0.4 MG/DL Aspartate Amino Transf 15 U/L (AST/SGOT) Alanine Aminotransferase 24 U/L (ALT/SGPT) Alkaline Phosphatase 119 U/L Total Protein 7.0 GM/DL Albumin 3.8 GM/DL Lipase 158 U/L [facility] Medical Decision Making Medical Screen Exam Complete: Yes Emergency Medical Condition: Yes Interpretation(s) LABS: CBC is unremarkable. CMP unremarkable. Lactate negative Lipase normal UA unremarkable CT abdomen and pelvis: Ventral hernia containing fat. Herniation of fat inferiorly to months pubis. Stable aside bladder diverticulum. Colonic diverticulosis. No new findings. Differential Diagnosis Acute chronic abdominal pain, narcotic bowel, obstruction, hernia, other Narrative Course Medical decision making 61-year-old presents emergent or acute on chronic lower abdominal pain. She attributes a hernia. I don't think this cause of her symptoms. She takes chronic opiates. She states she was asked to couple times a week. The [place] prescription drug monitoring program sure she fills 90 tablets every month. We' ll repeat labs and CT. Outpatient follow-up. Diagnosis Primary Impression: Abdominal pain Qualified Code: R10.84 - Generalized abdominal pain Additional Instructions: Take Bentyl as prescribed. Continue current medications. Return to the emergency department for any new or worsening symptoms. Med/Other Pt SpecificInfo: Prescription(s) given Scripts Dicyclomine (Bentyl)10 Mg Cap10 Mg PO TID PRN (Bowel Management) #30 CAP Ref 0 Prov:Ollie Pineda MD 12/01/16 Disposition: 01 DISCHARGE HOME Condition: Stable Ollie Pineda MD Dec 01, 2016 01:56
[2016-12-01] MEDS ORDERED: IOHEXOL 350 MG/ML 10 ML VIAL (for RAD DIAG) IV ONE (02:04)
--- NOTE | 2016-12-01 02:17 | RADRPT ---
EXAM DATE/TIME: 12/01/2016 02:00 [facility] COMPARISON: CT ABDOMEN & PELVIS W CONTRAST, November 09, 2016, 16:15. INDICATIONS : Abdominal pain. IV CONTRAST: 96 cc Omnipaque 350 (iohexol) IV ORAL CONTRAST: No oral contrast ingested. RADIATION DOSE: 11.82 CTDIvol (mGy) MEDICAL HISTORY : Hypertension. Diverticulitis. Gastroesophageal reflux disease.Diabetes, Renal calculi SURGICAL HISTORY : Appendectomy. Cholecystectomy.Hysterectomy.Bladder repair ENCOUNTER: Initial ACUITY: 1 day PAIN SCALE: 7/10 LOCATION: abdomen TECHNIQUE: Volumetric scanning of the abdomen and pelvis was performed. Using automated exposure control and ad justment of the mA and/or kV according to patient size, radiation dose was kept as low as reasonably achievable to obtain optimal diagnostic quality images. FINDINGS: Previous patchy airspace disease at the lung bases have resolved, compared with November 09. Fatty liver. Spleen, adrenals and pancreas unremarkable. Previous cholecystectomy. Tiny nonobstructing left renal calculus. Right kidney unremarkable. There is colonic diverticulosis without diverticulitis. Within the lower anterior abdominal wall just above the pubic symphysis is an inferior ventral herniation of fat measuring about 6 cm in diameter not significant change since prior exam. CONCLUSION: 1. Ventral hernia containing fat measuring up to about 6 cm in diameter. Herniation of fat is inferio rly into the area of mons pubis. 2. Stable left-sided bladder diverticulum. 3. Colonic diverticulosis without diverticulitis. 4. No new findings since November 09. Jacinto Love MD on December 01, 2016 at 2:11 Board Certified Radiologist. This report was verified electronically.
[2016-12-01] MEDS ORDERED: DICY10 PO (02:43)
[2016-12-01] MEDS ORDERED: DICYCLOMINE HCL 10 MG CAP PO ONE (03:00)
[2016-12-12] MEDS ORDERED: AK-T0.3S EACH EYE (10:14)
[2016-12-12] MEDS ORDERED: SUMA50TA2 PO (10:14)
[2016-12-12] MEDS ORDERED: GABA300C5 PO (10:14)
[2016-12-12] MEDS ORDERED: PARO40TA2 PO (10:14)
[2016-12-12] MEDS ORDERED: NOVOLOGSS (10:14)
[2016-12-12] MEDS ORDERED: BENZ100 PO (10:14)
[2016-12-12] MEDS ORDERED: RISP3TAB2 PO (10:14)
[2016-12-12] MEDS ORDERED: BUTA1TAB40 PO (10:14)
[2016-12-12] MEDS ORDERED: ATOR20TA15 PO (10:14)
[2016-12-12] MEDS ORDERED: AMLO10TA2 PO (10:14)
[2016-12-12] MEDS ORDERED: MECL-62 PO (10:14)
[2016-12-12] MEDS ORDERED: NEOM0.1S4 EACH EYE (10:14)
[2016-12-12] MEDS ORDERED: DICL75TA PO (10:14)
[2016-12-12] MEDS ORDERED: BACT800T5 PO (10:14)
[2016-12-12] MEDS ORDERED: MUPI2OIN TOPICAL (10:14)
[2016-12-12] MEDS ORDERED: VOLT1GEL4 TP (10:14)
[2016-12-12] MEDS ORDERED: MELO7.5T4 PO (10:14)
[2016-12-12] MEDS ORDERED: BUPR100T4 PO (10:14)
[2016-12-12] MEDS ORDERED: VENTAER INH (10:14)
[2016-12-12] MEDS ORDERED: METR500T10 PO (10:14)
[2016-12-12] MEDS ORDERED: LAMO100T PO (10:14)
[2016-12-12] MEDS ORDERED: EMPA1TAB PO (10:14)
[2016-12-12] MEDS ORDERED: LIDO0.1O TP (10:14)
== END 2016-12-01 03:10 | disposition home or self-care (01) ==
LOC: NEPC 23:02
DX: R10.84 Generalized abdominal pain (principal); I10 Essential (primary) hypertension; Z72.0 Tobacco use
CPT/HCPCS: 74177; 80053; 81001; 83605; 83690; 85025; 99284; Q9967

== ENCOUNTER 2017-01-23 23:09 | Observation (INO) | payer OTHER ==
[~2017-01-23] VITALS: Ht 152.4 cm; Wt 83.0 kg
[~2017-01-23 23:09] MED LIST changes: +AK-T0.3S EACH EYE; +AMLO10TA2 PO; +ATOR20TA15 PO; +BACT800T5 PO; +BENZ100 PO; +BUPR100T4 PO; +BUTA1TAB40 PO; -CIPR500T2 PO; +DICL75TA PO; +DICY10 PO; +EMPA1TAB PO; +GABA300C5 PO; -HYDR-3533 PO; +LAMO100T PO; +LIDO0.1O TP; +MECL-62 PO; +MELO7.5T4 PO; +METR500T10 PO; +MUPI2OIN TOPICAL; +NEOM0.1S4 EACH EYE; +NOVOLOGSS; +PARO40TA2 PO; +SUMA50TA2 PO; +VENTAER INH; +VOLT1GEL4 TP
[2017-01-23 23:16] VITALS: BP 129/67; PULSE 85; RESP 20; TEMP 98.5; O2SAT 95
[2017-01-23 23:25] VITALS: BP 114/55; PULSE 83; RESP 20; O2SAT 95
[2017-01-23] MEDS ORDERED: MORPHINE SULFATE 4 MG/ML INJ IV PUSH ONE (23:30)
[2017-01-23] MEDS ORDERED: SODIUM CHLORIDE 0.9% FLUSH 10 ML FLUSH IVF PRN (23:30)
[2017-01-23 23:47] LABS: AUTOMATED NEUTROPHIL # 4.7 TH/MM3 (1.8-7.7); BASOPHIL # 0.1 TH/MM3 (0-0.2); BASOPHIL % 0.7 % (0.0-2.0); EOSINOPHIL # 0.1 TH/MM3 (0-0.4); EOSINOPHIL % 1.5 % (0.0-4.0); HEMATOCRIT 42.2 % (35.0-46.0); HEMO FLAGS DIFF FINAL; LYMPHOCYTE # 3.4 TH/MM3 (1.0-4.8); MEAN CELL VOLUME 91.6 FL (80.0-100.0); MEAN CORPUSCULAR HEMOGLOBIN 31.5 PG (27.0-34.0); MEAN CORPUSCULAR HGB CONC 34.4 % (32.0-36.0); MONO % 7.9 % (0.0-8.0); NEUT % 51.9 % (16.0-70.0); PLATELET COUNT 195 TH/MM3 (150-450); RED BLOOD COUNT 4.61 MIL/MM3 (4.00-5.30); RED CELL DISTRIBUTION WIDTH 15.3 % (11.6-17.2)
--- NOTE | 2017-01-23 23:52 | RADRPT ---
EXAM DATE/TIME: 01/23/2017 23:26 [facility] COMPARISON: CHEST SINGLE AP, February 27, 2016, 15:05. INDICATIONS : Chest pain. MEDICAL HISTORY : Hypertension. Diverticulitis. Gastroesophageal reflux disease. Diabetes, Renal calculi SURGICAL HISTORY : Appendectomy. Cholecystectomy.Hysterectomy.Bladder repair ENCOUNTER: Initial ACUITY: 1 day PAIN SCORE: 8/10 LOCATION: Bilateral chest FINDINGS: A single view of the chest demonstrates the lungs to be symmetrically aerated without evidence of mas s, infiltrate or effusion. The cardiomediastinal contours are unremarkable. Osseous structures are intact. CONCLUSION: No acute disease. Yaya Boucher MD on January 23, 2017 at 23:51 Board Certified Radiologist. This report was verified electronically.
[2017-01-23 23:56] LABS: APTT (PATIENT) 25.1 SEC (24.3-30.1); INTERNATIONAL NORMALIZED RATIO 0.9 RATIO
[2017-01-24] VITALS (18 sets, daily range): BP systolic 110–137; BP diastolic 54–82; PULSE 60–91; RESP 14–20; TEMP 97.4–98.8; O2SAT 95–99
[2017-01-24 00:10] LABS: ALT (GPT) 43 U/L (10-53)
[2017-01-24 00:15] LABS: ALKALINE PHOSPHATASE 153 U/L (45-117); ANION GAP 7 MEQ/L (5-15); AST (GOT) 20 U/L (15-37); BICARBONATE 25.6 MEQ/L (21.0-32.0); BLOOD UREA NITROGEN 14 MG/DL (7-18); CHLORIDE 103 MEQ/L (98-107); CREATINE KINASE 65 U/L (26-192); GLOMERULAR FILTRATION RATE 79 ML/MIN (>89); POTASSIUM 4.1 MEQ/L (3.5-5.1); SODIUM (NA) 136 MEQ/L (136-145); TOTAL BILIRUBIN ADULT 0.2 MG/DL (0.2-1.0)
--- NOTE | 2017-01-24 00:35 | PD ---
HPI Chief Complaint: Chest Pain Time Seen by Provider: 23:19 Travel History International Travel<30 days: No Contact w/Intl Traveler<30days: No Traveled to known affect area: No History of Present Illness HPI Patient is a 61-year-old female comes in complaining of chest pain. She says she's been having chest pain on and off for a few weeks, but tonight it came on and last for 3 hours and was worse. She says she has had an abnormal stress test in the past. She says she has felt shortness of breath and nausea with the pain. She denies cough or cold symptoms. She denies fever or chills. PFSH Past Medical History Hx Anticoagulant Therapy: Yes (COUMADIN) Arthritis: Yes (BILATERAL KNEES AND INDEX FINGER ON R HAND - ARTHRITIS) Asthma: Yes Blood Disorders: No Bipolar Disorder: Yes Anxiety: Yes Depression: Yes Heart Rhythm Problems: No Cancer: No Cardiac Catheterization: No Cardiovascular Problems: Yes High Cholesterol: Yes Congestive Heart Failure: No COPD: Yes Diabetes: Yes Patient Takes Glucophage: No Diminished Hearing: No Diverticulitis: Yes Endocrine: Yes Gastrointestinal Disorders: Yes (Diverticulitis, Acid reflux) GERD: Yes Genitourinary: Yes (Bladder repair, frequent UTI's) Headaches: Yes Heparin Induced Thrombocytopen: No Hypertension: Yes Implanted Vascular Access Dvce: No Kidney Stones: Yes (HAD KIDNEY STONES 10 YEARS AGO) Musculoskeletal: Yes (Degenerative disc, Bilateral knees) Neurologic: Yes Psychiatric: Yes Respiratory: Yes Immunizations Current: No Sleep Apnea: Yes Thyroid Disease: No Tetanus Vaccination: < 5 Years Influenza Vaccination: No : 4 Para: 1 Miscarriage: 3 Past Surgical History Abdominal Surgery: Yes (EXP LAP FOR ADHESIONS X 6) Appendectomy: Yes Cholecystectomy: Yes Coronary Artery Bypass Graft: No Genitourinary Surgery: Yes (BLADDER SURG) Gynecologic Surgery: Yes Hysterectomy: Yes Neurologic Surgery: No Pacemaker: No Other Surgery: Yes (Gallbladder, Hysterectomy, Bladder repair) Social History Alcohol Use: No Tobacco Use: Yes (305 cigars 1PPD) Substance Use: No Allergies-Medications (Allergen,Severity, Reaction): Coded Allergies: Codeine (Verified Allergy, Severe, DIFFICULTY BREATHING, 01/23/17) Penicillin (Verified Allergy, Severe, Respiratory Failure, 01/23/17) Aspirin (Verified Adverse Reaction, Severe, Nausea/Vomiting, 12/12/16) Reported Meds & Prescriptions Reported Meds & Active Scripts Active Bentyl (Dicyclomine HCl) 10 Mg Cap 10 Mg PO TID PRN Reported Voltaren (Diclofenac Sodium) 100 Gm Gel..gram. 100 Gm TP DAILY Ventolin Hfa 18 GM Inh (Albuterol Sulfate) 90 Mcg/Act Aer 2 Puff INH Q4H PRN Tobramycin Opth Drops 0.3 % Soln 1 Drop EACH EYE Q4H Tessalon Perles (Benzonatate) 100 Mg Cap 100 Mg PO TID PRN Sumatriptan (Sumatriptan Succinate) 50 Mg Tab 50 Mg PO ONCE PRN If a satisfactory response has not been obtained at 2 hours, a second dose may be administered Risperidone 3 Mg Tab 3 Mg PO DAILY Paroxetine (Paroxetine HCl) 40 Mg Tab 40 Mg PO DAILY Novolog Inj (Insulin Aspart) 100 Unit/Ml Inj 100 Mg .ROUTE DAILY Jeshwsgz-Esedcywfl-Btdkqqpmbimjh Opth Drops 3.5-10,000-0.1 Mg-Units-% Susp 1 Drop EACH EYE Q4H Mupirocin Topical (Mupirocin) 2 % Oint 1 Applic TOPICAL TID Metronidazole 500 Mg Tab 500 Mg PO Q8HR Meloxicam 7.5 Mg Tab 7.5 Mg PO BID Meclizine (Meclizine HCl) 25 Mg Tab 25 Mg PO TID PRN Lidocaine He (Lidocaine) 5 % Oin 5 % TP DAILY Lamotrigine 100 Mg Tab 100 Mg PO BID Jardiance (Empagliflozin) 10 Mg Tab 10 Mg PO DAILY Gabapentin 300 Mg Cap 300 Mg PO TID Diclofenac Sodium DR (Diclofenac Sodium) 75 Mg Tabdr 75 Mg PO BID Butalbital-Acetamin 50-300 Tab (Butalbital/Acetaminophen) 1 Each Tablet 50-300 Cap PO DAILY Bupropion HCl 100 Mg Tab 150 Mg PO Q12HR Bactrim DS (Sulfamethoxazole-Trimethoprim) 800-160 Mg Tab 1 Tab PO Q12HR Atorvastatin (Atorvastatin Calcium) 20 Mg Tab 20 Mg PO HS Amlodipine (Amlodipine Besylate) 10 Mg Tab 10 Mg PO DAILY Novolog Flexpen Inj (Insulin Aspart) 300 Unit/3 Ml Pen 1 Units SQ Risperidone 3 Mg Tab 3 Mg PO HS Review of Systems Except as stated in HPI: all other systems reviewed are Neg General / Constitutional: No: Fever, Chills HENT: No: Headaches, Lightheadedness Cardiovascular: Positive: Chest Pain or Discomfort Respiratory: Positive: Shortness of Breath Gastrointestinal: Positive: Nausea, No: Vomiting, Diarrhea, Abdominal Pain Musculoskeletal: No: Edema, Pain Skin: No Rash, No Change in Pigmentation Neurologic: No: Weakness, Dizziness Physical Exam Narrative GENERAL: Awake and alert, in no acute distress. Unkept. SKIN: Focused skin assessment warm/dry. HEAD: Atraumatic. Normocephalic. EYES: Pupils equal and round. No scleral icterus. ENT: Mucous membranes pink and moist. NECK: Trachea midline. No JVD. CARDIOVASCULAR: Regular rate and rhythm. No murmur appreciated. RESPIRATORY: No accessory muscle use. Clear to auscultation. Breath sounds equal bilaterally. GASTROINTESTINAL: Abdomen soft, non-tender, nondistended. MUSCULOSKELETAL: No obvious deformities. No clubbing. No cyanosis. No edema. NEUROLOGICAL: Awake and alert. No obvious cranial nerve deficits. Motor grossly within normal limits. Normal speech. PSYCHIATRIC: Appropriate mood and affect; insight and judgment normal. Data Data Last Documented VS Vital Signs Date Time Temp Pulse Resp B/P Pulse Ox O2 Delivery O2 Flow Rate FiO2 01/24/17 00:30 91 18 137/77 97 Nasal Cannula 2 01/23/17 23:16 98.5 Orders Electrocardiogram (01/23/17 23:19) B-Type Natriuretic Peptide (01/23/17 23:19) Ckmb (Isoenzyme) Profile (01/23/17 23:19) Complete Blood Count With Diff (01/23/17 23:19) Comprehensive Metabolic Panel (01/23/17 23:19) Prothrombin Time / Inr (Pt) (01/23/17 23:19) Act Partial Throm Time (Ptt) (01/23/17 23:19) Troponin I (01/23/17 23:19) Chest, Single Ap (01/23/17 23:19) Ecg Monitoring (01/23/17 23:19) Bilateral Bp Monitoring (01/23/17 23:19) Iv Access Insert/Monitor (01/23/17 23:19) Oximetry (01/23/17 23:19) Oxygen Administration (01/23/17 23:19) Sodium Chloride 0.9% Flush (Ns Flush) (01/23/17 23:30) Morphine Inj (Morphine Inj) (01/23/17 23:30) Activity Bed Rest With Brp (01/24/17 00:32) Vital Signs (Adult) Q4H (01/24/17 00:32) Cardiac Rhythm .As Directed (01/24/17 00:32) Notify Dr: Other .PRN (01/24/17 00:32) Notify Dr. Parameters (01/24/17 00:32) Resp Oxygen Nasal Cannula (01/24/17 ) Diet Heart Healthy (01/24/17 Breakfast) Ckmb (Isoenzyme) Profile (01/24/17 02:25) Ckmb (Isoenzyme) Profile (01/24/17 05:25) Troponin I (01/24/17 02:25) Troponin I (01/24/17 05:25) Electrocardiogram (01/24/17 02:25) Electrocardiogram (01/24/17 05:25) ^ Obtain (01/24/17 00:32) Sodium Chloride 0.9% Flush (Ns Flush) (01/24/17 00:45) Sodium Chloride 0.9% Flush (Ns Flush) (01/24/17 09:00) Acetaminophen (Tylenol) (01/24/17 00:45) Acetamin-Hydrocod 325-7.5 Mg ([place] 7.5 (01/24/17 00:45) Swiss Type Screw Machine Operator / Telemetry KATALINA.Q8H (01/24/17 00:32) Morphine Inj (Morphine Inj) (01/24/17 00:45) Admit Order (Ed Use Only) (01/24/17 ) Labs Laboratory Tests Test 01/23/17 23:25 White Blood Count 9.0 TH/MM3 Red Blood Count 4.61 MIL/MM3 Hemoglobin 14.5 GM/DL Hematocrit 42.2 % Mean Corpuscular Volume 91.6 FL Mean Corpuscular Hemoglobin 31.5 PG Mean Corpuscular Hemoglobin 34.4 % Concent Red Cell Distribution Width 15.3 % Platelet Count 195 TH/MM3 Mean Platelet Volume 8.6 FL Neutrophils (%) (Auto) 51.9 % Lymphocytes (%) (Auto) 38.0 % Monocytes (%) (Auto) 7.9 % Eosinophils (%) (Auto) 1.5 % Basophils (%) (Auto) 0.7 % Neutrophils # (Auto) 4.7 TH/MM3 Lymphocytes # (Auto) 3.4 TH/MM3 Monocytes # (Auto) 0.7 TH/MM3 Eosinophils # (Auto) 0.1 TH/MM3 Basophils # (Auto) 0.1 TH/MM3 CBC Comment DIFF FINAL Differential Comment Prothrombin Time 10.0 SEC Prothromb Time International 0.9 RATIO Ratio Activated Partial 25.1 SEC Thromboplast Time Sodium Level 136 MEQ/L Potassium Level 4.1 MEQ/L Chloride Level 103 MEQ/L Carbon Dioxide Level 25.6 MEQ/L Anion Gap 7 MEQ/L Blood Urea Nitrogen 14 MG/DL Creatinine 0.75 MG/DL Estimat Glomerular Filtration 79 ML/MIN Rate Random Glucose 226 MG/DL Calcium Level 7.9 MG/DL Total Bilirubin 0.2 MG/DL Aspartate Amino Transf 20 U/L (AST/SGOT) Alanine Aminotransferase 43 U/L (ALT/SGPT) Alkaline Phosphatase 153 U/L Total Creatine Kinase 65 U/L Troponin I LESS THAN 0.02 NG/ML B-Type Natriuretic Peptide 14 PG/ML Total Protein 6.2 GM/DL Albumin 3.1 GM/DL MDM Medical Decision Making Medical Screen Exam Complete: Yes Emergency Medical Condition: Yes Medical Record Reviewed: Yes Interpretation(s) ECG shows normal sinus rhythm at 85, no ST elevation or depression, occasional PVCs. Differential Diagnosis ACS versus NSTEMI versus STEMI Narrative Course Patient is a 61-year-old female comes in complaining of chest pain. Exam shows no acute abnormalities. IV established, labs sent. Patient connected to the needle felt making machine operator. Patient received aspirin and nitroglycerin by EMS. She reports some improvement of her pain after nitroglycerin. First troponin is negative. Patient given morphine for pain. She placed in chest pain center for further management. Diagnosis Primary Impression: Chest pain Qualified Code: R07.9 - Chest pain, unspecified type Admitting Information Admitting Physician Requests: Observation Condition: Stable Lizzie Degroot MD Jan 24, 2017 00:35
[2017-01-24] MEDS ORDERED: SODIUM CHLORIDE 0.9% FLUSH 10 ML FLUSH IV FLUSH PRN (00:45)
[2017-01-24] MEDS ORDERED: MORPHINE SULFATE 4 MG/ML INJ IV PUSH ONE (00:45)
[2017-01-24] MEDS ORDERED: ACETAMINOPHEN 500 MG CPLT PO PRN (00:45)
[2017-01-24 02:58] LABS: CREATINE KINASE 55 U/L (26-192)
[2017-01-24] MEDS: ACETAMINOPHEN/HYDROcodone 325 MG/7.5 MG TAB PO PRN ×4 (03:32→21:15)
[2017-01-24 06:07] LABS: CREATINE KINASE 50 U/L (26-192)
[2017-01-24] MEDS: SODIUM CHLORIDE 0.9% FLUSH 10 ML FLUSH IV FLUSH SCH ×2 (08:14→21:16)
[2017-01-24] MEDS ORDERED: MECLIZINE HCL 25 MG TAB PO PRN (11:00)
[2017-01-24] MEDS ORDERED: HYDR-3133 PO (11:08)
[2017-01-24] MEDS ORDERED: RISP1TAB2 PO (11:08)
--- NOTE | 2017-01-24 11:44 | HHI.HP ---
HPI Primary Care Physician Non-Staff Chief Complaint Chest pain History of Present Illness Is is a 61-year-old female that presents to ED with a complaint of chest discomfort. She states that this has been intermittent since yesterday. Describes it as a heaviness in the center/right of her chest. It began when she was smoking a cigarette yesterday. She has had 3-4 more episodes since he saw lasting about 30 minutes. She was short of breath nauseous and diaphoretic with the symptoms. She states she has recently had a cardiac evaluation. She follows Dr. Issa. States she saw him 2 days ago and states that in her understanding she was told that she had a blockage. She has states she had a recent stress test and that it was abnormal. I spoke with Dr. Issa's office. He was out of the office but the staff sent the stress test report that states moderate anterior reversible defect and in his office note he had stated to go to the ED for repeat chest pain. The nurse in his office has stated that he was in the process of referring her for a cardiac catheterization. Patient is currently free of chest pain. Review of Systems General: Patient denies fevers, chills recent, and recent travel HEENT: Patient denies headache, sore throat, difficulty swallowing. Cardiovascular: Has the chest discomfort as mentioned above. Denies sensation of heart beating rapidly or irregularly. No syncope. She was diaphoretic. Respiratory: She was short of breath. Denies inspirational chest discomfort. Denies coughing wheezing or hemoptysis. GI: She was nauseous. Patient denies vomiting, diarrhea, abdominal pain, bloody stools. Musculoskeletal: Patient denies joint pain or edema. Denies calf pain or edema. Neurovascular: Patient denies numbness, tingling, weakness in extremities. Denies headache. Endocrine: Denies polyuria and polydipsia. Hematologic: Denies easy bruising. Skin: Denies rash or itching. Past Family Social History Allergies: Coded Allergies: Codeine (Verified Allergy, Severe, DIFFICULTY BREATHING, 01/23/17) Penicillin (Verified Allergy, Severe, Respiratory Failure, 01/23/17) Aspirin (Verified Adverse Reaction, Severe, Nausea/Vomiting, 12/12/16) Past Medical History Hypertension, bipolar disorder, diabetes, COPD, tobacco abuse, hyperlipidemia. Denies knowledge of coronary disease but states she had abnormal stress test recently. This was confirmed with records from her technician terminal and repeater's office. Past Surgical History Exploratory laparoscopy for adhesions. Cholecystectomy, hysterectomy, and bladder repair. Reported Medications Reported Meds & Active Scripts Active Reported Hydroxyzine HCl 25 Mg Tab 25 Mg PO BID Risperidone 1 Mg Tab 1 Mg PO DAILY Novolog Inj (Insulin Aspart) 100 Unit/Ml Inj 100 Mg .ROUTE DAILY Meloxicam 7.5 Mg Tab 7.5 Mg PO BID Meclizine (Meclizine HCl) 25 Mg Tab 25 Mg PO TID PRN Jardiance (Empagliflozin) 10 Mg Tab 10 Mg PO DAILY Gabapentin 300 Mg Cap 300 Mg PO TID Atorvastatin (Atorvastatin Calcium) 20 Mg Tab 80 Mg PO HS Amlodipine (Amlodipine Besylate) 10 Mg Tab 10 Mg PO DAILY Novolog Flexpen Inj (Insulin Aspart) 300 Unit/3 Ml Pen 1 Units SQ Active Ordered Medications Current Medications Medications (Trade) Dose Ordered Sig/Keven Route Start Time Stop Time Status Last Admin (NS Flush) 2 ml UNSCH PRN IVF 01/23/17 23:30 (NS Flush) 2 ml UNSCH PRN IV FLUSH 01/24/17 00:45 01/24/17 00:46 (NS Flush) 2 ml BID IV FLUSH 01/24/17 09:00 01/24/17 08:14 (Tylenol) 500 mg Q4H PRN PO 01/24/17 00:45 ([place] 7.5-325 Mg) 1 tab Q4H PRN PO 01/24/17 00:45 01/24/17 08:15 (Norvasc) 10 mg DAILY PO 01/24/17 12:00 (Neurontin) 300 mg TID PO 01/24/17 13:00 (Antivert) 25 mg TID PRN PO 01/24/17 11:00 (Lipitor) 80 mg HS PO 01/24/17 21:00 UNV (Atarax) 25 mg BID PO 01/24/17 11:45 UNV (risperDAL) 1 mg DAILY PO 01/24/17 11:45 UNV (D50w (Vial) Inj) 25 ml UNSCH PRN IV 01/24/17 11:45 UNV (Glucagon Inj) 1 mg UNSCH PRN IM/SQ 01/24/17 11:45 UNV Family History States that her father had CAD. Social History Patient has been smoking 1 pack of cigarettes daily for 15 years. Denies alcohol or illicit drugs. States she lives with her fianc. Physical Exam Vital Signs Vital Signs Date Time Temp Pulse Resp B/P Pulse Ox O2 Delivery O2 Flow Rate FiO2 01/24/17 11:28 98.5 77 14 136/82 99 01/24/17 07:36 73 01/24/17 07:16 97.4 74 14 116/68 99 01/24/17 05:10 78 01/24/17 04:48 97.8 81 20 128/79 98 01/24/17 04:40 20 01/24/17 01:34 97 Nasal Cannula 2.00 01/24/17 01:00 83 18 137/77 97 Nasal Cannula 2 01/24/17 00:30 91 18 137/77 97 Nasal Cannula 2 01/23/17 23:25 83 20 114/55 95 01/23/17 23:24 Nasal Cannula 2 01/23/17 23:16 98.5 85 20 129/67 95 Physical Exam GENERAL: This is a well-nourished, well-developed patient, in no apparent distress. Patient speaks in clear complete sentences. Patient is pleasant. HEENT: Head is atraumatic and normocephalic. Neck is supple without lymphadenopathy and trachea is midline. No JVD or carotid bruits. CARDIOVASCULAR: Regular rate and rhythm without murmurs, gallops, or rubs. RESPIRATORY: There are expiratory wheezing bilaterally in the bases. Breath sounds equal bilaterally. No rales or rhonchi. Chest wall is nontender. No use of accessory muscles. GASTROINTESTINAL: Abdomen is nontender, nondistended. Abdomen soft. No obvious pulsatile mass or bruit. No CVA tenderness. Strong femoral pulses bilaterally. Normal bowel sounds in all quadrants. MUSCULOSKELETAL: Patient is moving upper and lower extremities freely. No calf tenderness or edema, no Homans sign. Strong pulses in upper and lower extremities. NEUROLOGICAL: Patient is alert and oriented. Cranial nerves 2-12 are grossly intact. No focal deficits and speech is clear. SKIN: No rash and turgor is normal. Laboratory Laboratory Tests Test 01/23/17 01/24/17 01/24/17 23:25 02:20 05:20 White Blood Count 9.0 Red Blood Count 4.61 Hemoglobin 14.5 Hematocrit 42.2 Mean Corpuscular Volume 91.6 Mean Corpuscular Hemoglobin 31.5 Mean Corpuscular Hemoglobin 34.4 Concent Red Cell Distribution Width 15.3 Platelet Count 195 Mean Platelet Volume 8.6 Neutrophils (%) (Auto) 51.9 Lymphocytes (%) (Auto) 38.0 Monocytes (%) (Auto) 7.9 Eosinophils (%) (Auto) 1.5 Basophils (%) (Auto) 0.7 Neutrophils # (Auto) 4.7 Lymphocytes # (Auto) 3.4 Monocytes # (Auto) 0.7 Eosinophils # (Auto) 0.1 Basophils # (Auto) 0.1 CBC Comment DIFF FINAL Differential Comment Prothrombin Time 10.0 Prothromb Time International 0.9 Ratio Activated Partial 25.1 Thromboplast Time Sodium Level 136 Potassium Level 4.1 Chloride Level 103 Carbon Dioxide Level 25.6 Anion Gap 7 Blood Urea Nitrogen 14 Creatinine 0.75 Estimat Glomerular Filtration 79 Rate Random Glucose 226 Calcium Level 7.9 Total Bilirubin 0.2 Aspartate Amino Transf 20 (AST/SGOT) Alanine Aminotransferase 43 (ALT/SGPT) Alkaline Phosphatase 153 Total Creatine Kinase 65 55 50 Troponin I LESS THAN 0.02 LESS THAN 0.02 LESS THAN 0.02 B-Type Natriuretic Peptide 14 Total Protein 6.2 Albumin 3.1 Result Diagram: 01/23/17232401/23/172324 Imaging Last 48 hours Impressions Chest X-Ray 01/23/17 3642 Signed Impressions: Service Date/Time: Monday, January 23, 2017 23:26 - CONCLUSION: No acute disease. Yaya Boucher MD Course EKGs have sinus rhythm with occasional PVCs. No significant ST segment depressions or elevations. Assessment and Plan Assessment and Plan * Chest pain: Patient has had serial cardiac enzymes and EKGs for ruling out purposes. She has been seen by Dr. Cleveland cardiology and the chest pain center. [facility] review [facility] The office stated to consult which of her technician terminal and repeater is general production laborer for heart catheterization. * Hypertension: Continue current medication. * Hyperlipidemia: Continue current medication. * Diabetes: We'll have sliding scale insulin coverage. She will need to follow diabetic diet. * Bipolar disorder: Continue current medication. * Tobacco abuse: Patient has been counseled on importance of smoking cessation. At and is stable at this time. She is agreeable to this plan. Alexandre Gabriel Jan 24, 2017 11:44
[2017-01-24] MEDS ORDERED: RESP: ALBUTEROL 2.5 MG/IPRATROPIUM 0.5 MG NEB (SCH) INH ONE (11:45)
[2017-01-24] MEDS ORDERED: cloNIDine HCL 0.1 MG TAB PO PRN (11:45)
[2017-01-24] MEDS ORDERED: DEXTROSE 50% IN WATER 50 ML VIAL(D50) IV PRN (11:45)
[2017-01-24] MEDS ORDERED: RESP: ALBUTEROL 2.5 MG/IPRATROPIUM 0.5 MG NEB (PRN) INH (11:45)
[2017-01-24] MEDS ORDERED: GLUCAGON 1 MG/ML VIAL IM/SQ PRN (11:45)
[2017-01-24] MEDS ORDERED: SODIUM CHLOR 0.9% 1000 ML INJ 1,000 ML IV SCH (12:00)
[2017-01-24] MEDS: GABAPENTIN 300 MG CAP PO SCH ×2 (12:06→18:00)
[2017-01-24] MEDS: METOPROLOL TARTRATE 25 MG TAB PO SCH ×2 (12:12→21:15)
[2017-01-24] MEDS: risperiDONE 1 MG TAB PO SCH (12:16)
[2017-01-24] MEDS: hydrOXYzine HCL 25 MG TAB PO SCH ×2 (12:17→21:38)
[2017-01-24] MEDS: NITROGLYCERIN 2% OINT 1 GM PACKET TOPICAL SCH ×2 (12:44→21:17)
--- NOTE | 2017-01-24 13:32 | EKG ---
Date Performed: 01/24/2017 Time Performed: 02:22:58 PTAGE: 61 years EKG: Sinus rhythm NORMAL ECG PREVIOUS TRACING : 01/23/2017 23.22 Compared to previous tracing , PVCs have resolved. DOCTOR: Ceasar Cleveland Interpretating Date/Time 01/24/2017 13:32:15
--- NOTE | 2017-01-24 13:35 | EKG ---
Date Performed: 01/23/2017 Time Performed: 23:22:07 PTAGE: 61 years EKG: Sinus rhythm WITH OCCASIONAL VENTRICULAR PREMATURE COMPLEXES BORDERLINE ECG PREVIOUS TRACING : 08/13/2016 00.53 Compared to previous tracing ,PVCs are new. DOCTOR: Ceasar Cleveland Interpretating Date/Time 01/24/2017 13:34:44
--- NOTE | 2017-01-24 13:46 | EKG ---
Date Performed: 01/24/2017 Time Performed: 05:23:52 PTAGE: 61 years EKG: Sinus rhythm WITH OCCASIONAL VENTRICULAR PREMATURE COMPLEXES BORDERLINE ECG PREVIOUS TRACING : 01/23/2017 23.22 Since previous tracing, no significant change noted DOCTOR: Ceasar Cleveland Interpretating Date/Time 01/24/2017 13:45:36
[2017-01-24] MEDS ORDERED: HEPARIN-NS/PF INJ 500 ML ONE (13:52)
[2017-01-24] MEDS ORDERED: MIDAZOLAM HCL 2 MG/2 ML VIAL ONE (13:52)
--- NOTE | 2017-01-24 14:05 | MB ---
cc: ANAHI MOBLEY DATE OF CONSULTATION: 01/24/2017 1955 REASON FOR CONSULTATION Unstable angina. HISTORY OF PRESENT ILLNESS 61-year-old female that is a patient of Dr. Issa with a past medical history significant for hypertension, hyperlipidemia, COPD, active smoker and recent positive nuclear stress test that presented to the hospital with complaints of ongoing chest discomfort. She describes the chest pain as a pressure in the middle of the chest with no radiation and associated with nausea and diaphoresis. She follows up on an outpatient basis with Dr. Issa who performed a nuclear stress test in January 08, 2017. Results of stress test revealed a moderate anterior reversible defect with a preserved ejection fraction. She was scheduled for left heart catheterization. In the emergency department EKG showed sinus rhythm with occasional PVCs, no significant ST changes. She was given nitro paste, aspirin and consulted to cardiology. Interventional cardiology has been consulted for left heart catheterization. REVIEW OF SYSTEMS Review of systems negative except for what is mentioned in HPI. PAST MEDICAL HISTORY 1. Hypertension. 2. Hyperlipidemia. 3. Obesity. 4. Bipolar disorder. 5. Diabetes. 6. COPD. 7. Tobacco abuse. PAST SURGICAL HISTORY 1. Cholecystectomy. 2. Hysterectomy. 3. Bladder repair. MEDICATIONS Cardiac home medications: 1. Atorvastatin 20 mg p.o. q.h.s. 2. Amlodipine 10 mg p.o. daily. FAMILY HISTORY Noncontributory. ALLERGIES CODEINE, PENICILLIN AND ASPIRIN. FAMILY HISTORY Stated that father had history of CAD. SOCIAL HISTORY She is a current smoker. Denies alcohol use or illicit drug abuse. PHYSICAL EXAMINATION VITAL SIGNS: Temperature 98, respiratory rate of 14, heart rate 77, blood pressure 136/82, O2 sat 99% on room air. GENERAL: Awake, alert, oriented x3, in no acute distress. NECK: No JVD, no carotid bruits. HEART: Regular rate and rhythm. No murmurs, rubs or gallops. LUNGS: Clear to auscultation bilaterally. No wheezes or rhonchi or rales. ABDOMEN: Obese. Positive bowel sounds, soft, nontender, nondistended. EXTREMITIES: No cyanosis or edema. Pulses throughout. IMAGING STUDIES Chest x-ray: No acute cardiopulmonary process. EKG Normal sinus rhythm with PVC, nonspecific ST changes. LABORATORY DATA CBC hemoglobin 14, hematocrit 42, platelet count 195, INR 0.9. Chemistries sodium 136, potassium 4.1, BUN 14, creatinine 0.75, troponin less than 0.02 x3. ASSESSMENT/PLAN 61-year-old female with history and findings presenting with unstable angina. Cardiac risk factors include hypertension, hyperlipidemia, active smoker, diabetes and obesity. She has positive recent stress test showing reversible perfusion defect in the anterior wall of moderate size, preserved ejection fraction. Given the patient's presentation as well as positive stress test I think it is reasonable to do a left heart cath with possible PCI to further evaluate her CAD. The risks, benefits of left heart cath including but not limited to bleeding, infection, acute kidney injury, neurovascular trauma, stroke, emergent bypass surgery and have been explained to the patient. The patient understands the risks and she is willing to proceed. RECOMMENDATIONS - Keep n.p.o. for left heart cath today. - Continue aggressive medical management for CAD including heparin drip, beta- blockers, aspirin, statins and nitrates. Thank you for the opportunity to take part in the care of this patient. Further management to be determined. MD BLUE Harding/KYLIE /12:48 PM /1:28 PM BANDAR
--- NOTE | 2017-01-24 14:34 | CATHPROC ---
[employer] HIS Report Study Information Study Number Admission Scheduled Start Study Start [id number] Jan 24 2017 12:44AM 01/24/2017 Jan 24 2017 1:23PM [place] Service Cardiac Catheterization Admit Source Facility Department Emergency department [facility] - Aircraft Painter Apprentice Physician and Clinical Staff Initial MD Rapp, Te Sales Associate Key Holder Carmella Schultz,RN Recorder Monie Lund,RT(R) Scrub Glenn Canas RCIS(BS) Procedures Performed Procedure Location (Site) Vessel Name Coronary Angiograms LCA Left Coronary Coronary Angiograms RCA Right Coronary L Heart Cath LV Gram-hand inj. LV LV Ventricle Equipment Time Machine Cementer And Folder Description Size Mfg Part Number Used/Scraped TRANSDUCER, TRUWAVE [id number] 14:11 TILLMAN JIANG * Used W/STOCKCOCK *[id number] 14:18 [employer]KK [employer] [place] MEDICAL VASCADE, FR5 CLOSURE SYSTEM FR 5 Used *[id number]- INTRODUCER SET, 14:11 [employer]. FR 5 SC-NT-U-SST Used MICROPUNCTURE, STIFFENED *[id number] *[id number] *[id number] 14:11 [employer] INDUSTRIES PACK, CCL CUSTOM * Used *[id number] 14:11 AccuVein WIRE, 3MMJ .035 180CM 180CM Used *[id number] 14:11 NAMIC MANIFOLD, 4 PORT * Used *[id number] 14:11 NYCOMED OMNIPAQUE, 350 MG, 150ML 150ML [id number] Used [id number] 14:11 RUBI MEDICAL BLANKET,WARM AIR CCL * Used *[id number] 14:11 TERUMO MEDICAL SHEATH, FR5 TERUMO (10CM) FR 5 Used *[id number] History: Current Medications Medication Dosage/Unit Route Frequency Last Date/Time Taken Statins (any) Beta Jone History: Allergies Allergy Reaction Codeine Penicillin Aspirin History: Risk Factors Family History of Hypertension Dyslipidemia Previous KS Previous Heart Failure Premature CAD Yes Yes No No No Prior Valve Prior PCI Prior CABG Surgery No No No Cerebrovascular Peripheral Artery Chronic Lung On Dialysis Diabetes Diabetes Therapy Disease Disease Disease No No No No Yes Insulin History: Symptoms/Diagnosis Selection Items Chest pain SOB History: Stress Tests Stress or Imaging Studies Performed Yes Standard Exercise Stress Test No Stress Echo No Stress Test SPECT Stress Test SPECT Result Stress Test SPECT Ischemia Risk/Extent Yes Positive Intermediate Stress Test CMR No Cardiac CTA Coronary Calcium Score No No History: Other Disease Selection Items COPD History: Other Current Smoker Packs a Day Years Used Pack Years Yes 1 2 2 Labs Hgb (g/dl) Hct (%) RBC (MIL/MM3) WBC (l/cumm) Platelets (thousands) 11.60-17.00 35.00-51.00 4.00-5.90 4.00-11.00 150.00-450.00 14.5 42.2 4.6 9 195 Glucose (mg/dl) BUN (mg/dl) Creatinine (mg/dl) BUN:Creatinine (1:x) 74.00-106.00 7.00-18.00 0.50-1.30 10.00-20.00 226 14 0.7 20 Na (meq/l) K (meq/l) Cl (meq/l) Ca (mg/dl) 136.00-145.00 3.50-5.10 98.00-107.00 8.50-10.10 136 4.1 103 7.9 INR (PTT:PT) 0.90-1.10 0.9 Troponin I (ng/ml) CPK-MB (ng/ML) 0.02-0.05 0.50-3.60 0.02 Not Drawn AST (u/l) ALT (u/l) 10.00-78.00 7.00-56.00 20 43 Medication Medication Total Dose (Bolus/Oral) Medication Total Dosage/Unit 1% XYLOCAINE 20 mL FENTANYL 50 mcg NITRO OINTMENT 0.5 inches OXYGEN 2 l/min VERSED 2 mg Medications (Bolus/Oral) Medication Time Given Dosage/Unit Administered By Reason NITRO OINTMENT 01/24/2017 2:04:53 PM 0.5 inches Patient arrived on 0.5 inches NITRO OINTMENT via Topical. VERSED 01/24/2017 2:07:37 PM 2 mg Carmella Schultz 2 mg VERSED given in lab by Carmella Schultz, RN in Left Antecubital via Peripheral IV. Ordered by Te Chung. 1% XYLOCAINE 01/24/2017 2:07:48 PM 20 mL Te Rapp 20 mL 1% XYLOCAINE given in lab by Te Rapp via Subcutaneous. Ordered by Te Rapp. OXYGEN 01/24/2017 2:08:35 PM 2 l/min Carmella Schultz 2 l/min OXYGEN given in lab by Carmella Schultz, LORE via Nasal. Ordered by Te Rapp. FENTANYL 01/24/2017 2:08:38 PM 50 mcg Carmella Schultz 50 mcg FENTANYL given in lab by Carmella Schultz, LORE in Left Antecubital via Peripheral IV. Ordered by Te Rapp. Initial Case Assessment Cardiovascular HR Rhythm NIBP Chest Pain 69 nsr 138/85 9 Edema Present Skin color Skin None Normal Warm Circulatory - Right Pulses Dorsalis Pedis Femoral 1 1 Scale (0,1,2,3,4,d) Circulatory - Left Pulses Dorsalis Pedis Femoral 1 1 Scale (0,1,2,3,4,d) Neurological State Oriented to time-place- Alert Moves all extremities person Respiration - General Respiration Rate SpO2 (%) O2 (lpm) (B/min) 11 98 2 Chronological Log Time Study Chronological Log 13:44:30 Patient arrived via Bed. 13:44:35 Patient Name, D.O.B, / Armband Verified By R.N. 13:44:38 Consent signed by the physician and the patient and verified by the Aircraft Painter Apprentice staff. 13:44:40 Pre-op and post- op instructions given; patient acknowledges understanding of instructions . 13:45:01 Allens test performed on the right radial and ulnar artery. 13:45:55 Patient has been NPO for More than 6Hrs. 13:46:20 Skin Breakdown- 13:46:30 Patient Warmer Placed on the Table. 13:52:15 A # 20 IV was noted in the Antecubital (left). Grade = 0 Vitals capture started with the following parameters, Patient=Adult, Interval=5 min, Initial Pr ybkkac=752 mmHg, 13:52:36 Deflation Rate=5 mmHg, Cuff placed on Right Arm 13:53:06 History and physical on the chart or being dictated. Assessment: Initial Case, HR=69 BPM, Rhythm=nsr, SSKE=091/85 mmhg, Chest Pain=9, Edema=None, Co sadiq=Normal, Skin = Warm Right Pulses: Braxton Ped=1, Femoral=1 13:53:10 Left Pulses: Braxton Ped=1, Femoral=1 Neurological: State=Alert, Ox3, QUINTERO Respiration: Resp=11 B/min, SpO2=98 %, O2=2 lpm 13:53:19 HR=65 bpm, OHZF=283/91 mmhg, SpO2=98.0 %, Resp=15 B/min 13:53:41 Bilateral groins prepped with 2% chlorhexidine, and with a 3 min. waiting time. 13:58:11 HR=64 bpm, RFWQ=909/85 mmhg, SpO2=96.0 %, Resp=13 B/min 13:59:56 Pressure channel 1 zeroed. 14:00:26 MD paged 14:03:12 HR=64 bpm, IMKB=582/75 mmhg, SpO2=95.0 %, Resp=11 B/min 14:04:16 MD arrived. 14:04:53 Patient arrived on 0.5 inches NITRO OINTMENT via Topical. Time Out. Correct patient, correct procedure,correct physician, ,power injector loaded or not l oaded with contrast with 14:05:45 surgical team present. Time Out Concurred by MD, individual staff and CIRCUIT COURT JUDGE in procedure 14:06:25 Reference ECG taken 14:07:08 Case Start 14:07:37 2 mg VERSED given in lab by Carmella Schultz, RN in Left Antecubital via Peripheral IV. Orde red by Te Rapp. 14:07:48 20 mL 1% XYLOCAINE given in lab by Te Rapp via Subcutaneous. Ordered by Te Olson. 14:08:14 HR=71 bpm, ZFRU=985/75 mmhg, SpO2=86.0 %, Resp=13 B/min 14:08:35 2 l/min OXYGEN given in lab by Carmella Schultz, RN via Nasal. Ordered by Te Rapp. 50 mcg FENTANYL given in lab by Carmella Schultz, RN in Left Antecubital via Peripheral IV. Orde red by Dionte 14:08:38 Te. 14:08:58 Access site was Right Femoral Artery. 14:09:20 A SHEATH, FR5 TERUMO (10CM) FR 5 was advanced into the Fem Art (right) using the Percutaneo us technique. 14:09:31 Nitro paste removed A JR 4.0 INFINITI CATHETER FR 5 was advanced over a wire. OMNIPAQUE, 350 MG, 150ML 150ML was us ed for 14:10:42 injections. Recorded Pressure: LV, HR=79, Condition=Condition 1 14:11:36 (Left Ventricle) LV 113/23/25 14:11:40 The LV was manually injected with 8 cc's and visualized. OMNIPAQUE, 350 MG, 150ML 150ML use d. Recorded Pressure: LV, Ao, HR=76, Condition=Condition 1 14:12:15 (Left Ventricle) LV 111/23/28, (Aorta) Ao 115/79/96 14:13:13 HR=73 bpm, HHBM=918/66 mmhg, SpO2=96.0 %, Resp=8 B/min 14:13:17 The RCA was injected and visualized at various angles. OMNIPAQUE, 350 MG, 150ML 150ML used . 14:13:29 Catheter was removed A JL 4.0 INFINITI CATHETER FR 5 was advanced over a wire. OMNIPAQUE, 350 MG, 150ML 150ML was us ed for 14:13:37 injections. Recorded Pressure: Ao, HR=73, Condition=Condition 1 14:14:14 (Aorta) Ao 105/76/89 14:14:38 The LCA was injected and visualized at various angles. OMNIPAQUE, 350 MG, 150ML 150ML use d. 14:16:45 Catheter was removed 14:17:57 VASCADE, FR5 CLOSURE SYSTEM FR 5 placement in the Fem Art (right) 14:18:12 HR=73 bpm, VXWW=473/67 mmhg, SpO2=96.0 %, Resp=7 B/min 14:19:53 Case End 14:20:01 Sterile dressing applied to site 14:20:03 No case complications noted. 14:20:14 Bedside Report will be given. 14:20:29 A Left Heart Cath was performed. 14:23:15 HR=72 bpm, NIBP=96/55 mmhg, SpO2=97.0 %, Resp=8 B/min 14:28:44 JC=191 bpm, OKOU=454/80 mmhg, SpO2=96.0 %, Resp=8 B/min 14:29:17 Vitals capture stopped. 14:30:33 Patient moved to bed End Study - Contrast Media Used In Study Contrast Total Opened (mL) Total Used (mL) Total Wasted (mL) Omnipaque 50 50 0 End Study - Maximum Contrast Load Max Contrast Load (mL) 584.4 End Study - Radiation Exposure Fluoro Time (minutes) 2.0 End Study - Patient Disposition Complications Transferred To No Outpatient Bed
--- NOTE | 2017-01-24 15:34 | MA ---
cc: TONYAANAHI Stone DATE: 01/24/2017 DATE OF : 1955 PROCEDURE PERFORMED 1. Left heart catheterization. 2. Selective right and left coronary angiography. 3. Left ventriculogram 4. Selective right common femoral artery angiography. INDICATION Unstable angina, positive stress test. DESCRIPTION OF PROCEDURE Consent signed. The patient was brought to the analytical lab technician in a fasting state. She was prepped and draped in sterile fashion using IV for local anesthesia and a micropuncture kit a 5-[place] Islander sheath was inserted into the right common femoral artery right common femoral artery angiography was performed to confirm position of the sheath, then selective right and left coronary angiography was performed with a JR-4 and JL-4 diagnostic catheters. Angiography was taken in multiple views. Then the JR-4 diagnostic catheter was introduced into the ventricle over a wire. This was followed by pressure recordings the ventriculogram and pullback. The patient tolerated the procedure well without complications. Estimated blood loss less than 30 cc total contrast used 75 cc. The right groin access site was closed with a basket closure device. RESULTS LEFT VENTRICLE The left ventricular pressure was 111/23 with an LVEDP of 28, aortic pressure was 105/76 with mean of 89. There was no gradient upon pullback from the ventricle to the aorta. The left ventricle revealed mild hypokinesis of the anterior wall with an estimated ejection fraction of 50%. ANGIOGRAPHIC RESULTS 1. Right coronary artery; right coronary is a dominant vessel giving off the PDA of the vessel. It has nonobstructive coronary artery disease CHERYLE-III flow. 2. Left main; left main is patent with CHERYLE III flow nonobstructive coronary artery disease. 3. Left anterior descending; the left anterior descending is tortuous it has nonobstructive coronary artery disease, however it has mild slow flow. It is giving off two diagonal vessels which are all patent. 4. The left circumflex artery. The left circumflex artery is giving off three obtuse marginal vessels. The vessels are patent with CHERYLE III flow. Also the circumflex artery proximal portion is patent with CHERYLE III flow and nonobstructive coronary artery disease. 5. The patient has a small ramus intermedius vessel which is patent with CHERYLE III flow. CONCLUSION 1. Nonobstructive coronary artery disease 2. Elevated LVEDP / diastolic dysfunction. RECOMMENDATIONS - Admit to [facility] for post cath care - Aggressive medical management for primary prevention of coronary artery disease. - Smoking cessation is strongly advised. - 2Dechocardiogram MD BLUE Harding/wale /2:25 PM /3:26 PM BANDAR
[2017-01-24] MEDS: INSULIN ASPART SUPPLEMENTAL SCALE SQ SCH ×2 (16:00→21:00)
[2017-01-24] MEDS ORDERED: ATORVASTATIN 80 MG TAB PO SCH (21:00)
[2017-01-25] VITALS (16 sets, daily range): BP systolic 127–155; BP diastolic 65–82; PULSE 55–84; RESP 18; TEMP 98–99.2; O2SAT 94–98
[2017-01-25] MEDS: NITROGLYCERIN 2% OINT 1 GM PACKET TOPICAL SCH ×2 (05:07→13:25)
[2017-01-25] MEDS: INSULIN ASPART SUPPLEMENTAL SCALE SQ SCH ×2 (05:11→13:24)
[2017-01-25] MEDS: ACETAMINOPHEN/HYDROcodone 325 MG/7.5 MG TAB PO PRN (05:46)
--- NOTE | 2017-01-25 07:28 | PD.CARD.PN ---
Subjective Subjective Remarks no overnight events complaining of headache Objective Medications Current Medications Medications (Trade) Dose Ordered Sig/Keven Route Start Time Stop Time Status Last Admin (NS Flush) 2 ml UNSCH PRN IV FLUSH 01/24/17 00:45 01/24/17 00:46 (NS Flush) 2 ml BID IV FLUSH 01/24/17 09:00 01/24/17 21:16 (Tylenol) 500 mg Q4H PRN PO 01/24/17 00:45 01/25/17 03:09 ([place] 7.5-325 Mg) 1 tab Q4H PRN PO 01/24/17 00:45 01/25/17 05:46 (Norvasc) 10 mg DAILY PO 01/24/17 12:00 01/24/17 12:06 (Neurontin) 300 mg TID PO 01/24/17 13:00 01/24/17 12:06 (Antivert) 25 mg TID PRN PO 01/24/17 11:00 (Lipitor) 80 mg HS PO 01/24/17 21:00 01/24/17 21:16 (Atarax) 25 mg BID PO 01/24/17 11:45 01/24/17 21:38 (risperDAL) 1 mg DAILY PO 01/24/17 12:15 01/24/17 12:16 (D50w (Vial) Inj) 25 ml UNSCH PRN IV 01/24/17 11:45 (Glucagon Inj) 1 mg UNSCH PRN IM/SQ 01/24/17 11:45 (Catapres) 0.1 mg Q4H PRN PO 01/24/17 11:45 (Lopressor) 25 mg Q12HR PO 01/24/17 12:00 01/24/17 21:15 (Nitroglycerin 2% Oint) 0.5 inch Q8HR TOPICAL 01/24/17 14:00 01/25/17 05:07 Vital Signs / I&O Vital Signs Date Time Temp Pulse Resp B/P Pulse Ox O2 Delivery O2 Flow Rate FiO2 01/25/17 06:00 61 01/25/17 05:00 61 01/25/17 04:00 57 01/25/17 03:00 55 01/25/17 03:00 99.2 61 18 155/82 96 01/25/17 02:00 61 8/11/17 01:00 63 01/25/17 00:00 58 01/24/17 23:00 98.2 60 18 110/54 95 01/24/17 23:00 60 01/24/17 22:00 68 01/24/17 21:00 66 01/24/17 20:00 64 01/24/17 19:00 64 01/24/17 19:00 98.8 65 18 132/73 98 01/24/17 18:00 61 01/24/17 17:00 66 01/24/17 16:29 98.6 67 16 117/72 99 01/24/17 16:00 74 01/24/17 14:43 100 Room Air 01/24/17 11:28 98.5 77 14 136/82 99 01/24/17 07:47 99 Nasal Cannula 2.00 01/24/17 07:36 73 I/O 01/24/17 01/24/17 01/24/17 01/25/17 01/25/17 01/25/17 07:00 15:00 23:00 07:00 15:00 23:00 Intake Total 0 ml 240 ml Output Total 300 ml 1000 ml Balance -300 ml -760 ml Intake Oral 0 ml 240 ml Output Urine Total 300 ml 1000 ml # Bowel Movements 0 1 Physical Exam GENERAL: Well-nourished, well-developed patient. SKIN: Warm and dry. HEAD: Normocephalic. EYES: No scleral icterus. No injection or drainage. NECK: Supple, trachea midline. No JVD or lymphadenopathy. CARDIOVASCULAR: Regular rate and rhythm without murmurs, gallops, or rubs. RESPIRATORY: Breath sounds equal bilaterally. No accessory muscle use. GASTROINTESTINAL: Abdomen soft, non-tender, nondistended. EXTREMITIES: No cyanosis, or edema. NEUROLOGICAL: Awake, alert, and oriented x 3. Non-focal. Imaging Last Impressions Chest X-Ray 01/23/17 6022 Signed Impressions: Service Date/Time: Monday, January 23, 2017 23:26 - CONCLUSION: No acute disease. Yaya Boucher MD Assessment and Plan Problem List: (1) Chest pain Assessment and Plan: Unremarkable LHC. Preserved EF. Chest pain non cardiac. ?Pericarditis. 1. Cont medical management per primary team, 2. Early ambulation 3. Smoking cessation 4. Therapeutic lifestyle changes Sign off (2) DM (diabetes mellitus) (3) Abdominal pain (4) Left-sided chest wall pain (5) Hypertension (6) Hyperlipidemia Problem Qualifiers (1) Chest pain: Qualified Code: R07.9 - Chest pain, unspecified type Te Rapp MD Jan 25, 2017 07:28
[2017-01-25] MEDS: GABAPENTIN 300 MG CAP PO SCH ×2 (08:06→13:25)
[2017-01-25] MEDS: SODIUM CHLORIDE 0.9% FLUSH 10 ML FLUSH IV FLUSH SCH (08:06)
[2017-01-25] MEDS: hydrOXYzine HCL 25 MG TAB PO SCH (08:06)
[2017-01-25] MEDS: risperiDONE 1 MG TAB PO SCH (08:06)
[2017-01-25] MEDS: METOPROLOL TARTRATE 25 MG TAB PO SCH (08:06)
[2017-01-25] MEDS ORDERED: HYDR-3580 PO (11:19)
--- NOTE | 2017-01-25 11:24 | HHI.PR ---
Subjective Remarks Patient reports midsternal pain is better with pain medications. Tender to palpation. No SOB. Negative Heart cath. Objective Vitals Vital Signs Date Time Temp Pulse Resp B/P Pulse Ox O2 Delivery O2 Flow Rate FiO2 01/25/17 10:35 69 01/25/17 09:00 67 01/25/17 08:00 70 01/25/17 07:00 98.9 84 18 130/65 94 01/25/17 07:00 71 01/25/17 06:00 61 01/25/17 05:00 61 01/25/17 04:00 57 01/25/17 03:00 55 01/25/17 03:00 99.2 61 18 155/82 96 01/25/17 02:00 61 01/25/17 01:00 63 01/25/17 00:00 58 01/24/17 23:00 98.2 60 18 110/54 95 01/24/17 23:00 60 01/24/17 22:00 68 01/24/17 21:00 66 01/24/17 20:00 64 01/24/17 19:00 64 01/24/17 19:00 98.8 65 18 132/73 98 01/24/17 18:00 61 01/24/17 17:00 66 01/24/17 16:29 98.6 67 16 117/72 99 01/24/17 16:00 74 01/24/17 14:43 100 Room Air 01/24/17 11:28 98.5 77 14 136/82 99 I/O 01/24/17 01/24/17 01/24/17 01/25/17 01/25/17 01/25/17 07:00 15:00 23:00 07:00 15:00 23:00 Intake Total 0 ml 240 ml Output Total 300 ml 1000 ml Balance -300 ml -760 ml Intake Oral 0 ml 240 ml Output Urine Total 300 ml 1000 ml # Bowel Movements 0 1 Result Diagram: 01/23/17232401/23/172324 Imaging Last Impressions Chest X-Ray 01/23/172318 Signed Impressions: Service Date/Time: Monday, January 23, 2017 23:26 - CONCLUSION: No acute disease. Yaya Boucher MD Objective Remarks GENERAL: This is a well-nourished, well-developed patient, in no apparent distress. CARDIOVASCULAR: Chest tender to palpation in the midsternal region. Normal rate and regular rhythm without murmurs, gallops, or rubs. RESPIRATORY: Good respiratory efforts. Breath sounds equal and clear to auscultation bilaterally. GASTROINTESTINAL: Abdomen soft, non-tender, non-distended. Normal active bowel sounds MUSCULOSKELETAL: Extremities without cyanosis, or edema. NEURO: Alert & Oriented x4 to person, place, time, situation. Moves all ext x4 PSYCH: Appropriate mood and affect. A/P Problem List: (1) Chest pain ICD Code: R07.9 Status: Acute Plan: Patient had a negative left heart catheterization. Likely costochondritis. Tender to palpation on exam. Pain control outpatient. Limited supply of pain medication provided. (2) Hypertension ICD Code: I10 Status: Acute Plan: Controlled. Continue home medications (3) Hyperlipidemia ICD Code: E78.5 Status: Acute Plan: Continue home medications (4) DM (diabetes mellitus) ICD Code: E11.9 Status: Chronic Plan: Resume home dose insulin on discharge (5) Tobacco abuse ICD Code: Z72.0 Status: Chronic Plan: Patient counseled to quit. Discharge Planning Discharge home in stable condition Activity: Regular as tolerated Meds: Per med rec Follow-up: With PCP Diet: Diabetic/heart healthy Problem Qualifiers (1) Chest pain: Qualified Code: R07.9 - Chest pain, unspecified type Toshia Evangelista MD Jan 25, 2017 11:24
--- NOTE | 2017-01-25 11:25 | HHI.DCPOC ---
Discharge Care Plan Diagnosis: (1) Chest pain (2) Hypertension (3) DM (diabetes mellitus) (4) Hyperlipidemia (5) Tobacco abuse Goals to Promote Your Health * To prevent worsening of your condition and complications * To maintain your health at the optimal level Directions to Meet Your Goals Take your medications as prescribed Follow your dietary instruction Follow activity as directed Keep your appointments as scheduled Take your immunizations and boosters as scheduled If your symptoms worsen call your PCP, if no PCP go to Urgent Care Center or Emergency Room Smoking is Dangerous to Your Health. Avoid second hand smoke Call the 24-hour hour crisis hotline for domestic abuse at Toshia Evangelista MD Jan 25, 2017 11:25
== END 2017-01-25 14:44 | disposition home or self-care (01) ==
LOC: NEPC 23:09 → NEDA 01-24 00:44 → NEPFCDU 01-24 04:34 → HCIN 01-24 16:10
PROVIDERS: ADMIT Family Medicine; ATTEND Family Medicine
DX: R07.89 Other chest pain (principal); I10 Essential (primary) hypertension; E11.9 Type 2 diabetes mellitus without complications; E78.5 Hyperlipidemia, unspecified; F31.9 Bipolar disorder, unspecified; J44.9 Chronic obstructive pulmonary disease, unspecified; F17.200 Nicotine dependence, unspecified, uncomplicated; Z79.4 Long term (current) use of insulin; Z79.899 Other long term (current) drug therapy; K21.9 Gastro-esophageal reflux disease without esophagitis; G47.30 Sleep apnea, unspecified
CPT/HCPCS: 71010; 80053; 82550; 82948; 83880; 84484; 85025; 85610; 85730; 93005; 93458; 94664; 96361; 96372; 96374; 96376; 99285; C1760; C1769; C1893; G0269; G0378; J1644; J1815; J2250; J2270; J3010; J7030

== ENCOUNTER 2017-08-14 14:51 | Emergency (ER) | payer OTHER ==
[~2017-08-14 14:51] MED LIST changes: -AK-T0.3S EACH EYE; -BACT800T5 PO; -BENZ100 PO; -BUPR100T4 PO; -BUTA1TAB40 PO; -DICL75TA PO; -DICY10 PO; +HYDR-3133 PO; +HYDR-3580 PO; -LAMO100T PO; +LANTUS2P SQ; -LIDO0.1O TP; -MELO7.5T4 PO; -METR500T10 PO; -MUPI2OIN TOPICAL; -NEOM0.1S4 EACH EYE; -PARO40TA2 PO; +RISP1TAB2 PO; -RISP3TAB2 PO; -SUMA50TA2 PO; -VENTAER INH; -VOLT1GEL4 TP
[2017-08-14 15:03] VITALS: BP 132/65; PULSE 82; RESP 16; TEMP 98.5; O2SAT 97
[2017-08-14 16:11] VITALS: BP 121/67; PULSE 80; RESP 16; O2SAT 95
--- NOTE | 2017-08-14 16:17 | PD ---
HPI Chief Complaint: Altered Mental Status Time Seen by Provider: 16:03 Travel History International Travel<30 days: No Contact w/Intl Traveler<30days: No Traveled to known affect area: No History of Present Illness HPI The patient was seen and examined in the presence of the nurse. This patient came to the ER by [facility] for altered mental status. Fire department reportedly found her at home lethargic with an Accu-Chek of 38. She received glucose and went up to 290. Currently is 108. She is drowsy but awakens to voice and answers questions and follows commands appropriately. She takes Lortab for chronic pain. She denies overdose or overuse of medication. Denies alcohol or drugs or other sedating medication. She is not had any head injury. No headache. Denies fever. Symptoms severity is moderate. No alleviating factors. Duration is one day. Exacerbating factors. Patient takes insulin but can't remember if she gave herself insulin today or if so how much. She is not compliant with her diabetes. PFSH Past Medical History Hx Anticoagulant Therapy: Yes (COUMADIN) Arthritis: Yes (BILATERAL KNEES AND INDEX FINGER ON R HAND - ARTHRITIS) Asthma: Yes Autoimmune Disease: No Blood Disorders: No Bipolar Disorder: Yes Anxiety: Yes Depression: Yes Heart Rhythm Problems: No Cancer: No Cardiac Catheterization: No Cardiovascular Problems: Yes High Cholesterol: Yes Chemotherapy: No Chest Pain: No Congestive Heart Failure: No COPD: Yes Cerebrovascular Accident: No Diabetes: Yes Patient Takes Glucophage: No Diminished Hearing: No Diverticulitis: Yes Endocrine: Yes Gastrointestinal Disorders: Yes (Diverticulitis, Acid reflux) GERD: Yes Glaucoma: No Genitourinary: Yes (Bladder repair, frequent UTI's) Headaches: Yes Hepatitis: No Hiatal Hernia: No Heparin Induced Thrombocytopen: No Hypertension: Yes Immune Disorder: No Implanted Vascular Access Dvce: No Kidney Stones: Yes (HAD KIDNEY STONES 10 YEARS AGO) Musculoskeletal: Yes (Degenerative disc, Bilateral knees) Neurologic: Yes Psychiatric: Yes Reproductive: Yes (HYSTERECTOMY AGE 20) Respiratory: Yes Immunizations Current: No Myocardial Infarction: No Radiation Therapy: No Renal Failure: No Seizures: No Sickle Cell Disease: No Sleep Apnea: Yes Thyroid Disease: No Ulcer: No : 4 Para: 1 Miscarriage: 3 Past Surgical History Abdominal Surgery: Yes (EXP LAP FOR ADHESIONS X 6) AICD: No Appendectomy: Yes Cardiac Surgery: No Cholecystectomy: Yes Coronary Artery Bypass Graft: No Ear Surgery: No Endocrine Surgery: No Eye Surgery: No Genitourinary Surgery: Yes (BLADDER SURG) Gynecologic Surgery: Yes Hysterectomy: Yes Insulin Pump: No Joint Replacement: No Neurologic Surgery: No Oral Surgery: No Pacemaker: No Thoracic Surgery: No Other Surgery: Yes (Gallbladder, Hysterectomy, Bladder repair) Family History Family Myocardial Infarction: No Social History Alcohol Use: No Tobacco Use: Yes (305 cigars 1PPD) Substance Use: No Allergies-Medications (Allergen,Severity, Reaction): Coded Allergies: codeine (Unverified Allergy, Severe, DIFFICULTY BREATHING, 08/14/17) penicillin G (Unverified Allergy, Severe, Respiratory Failure, 08/14/17) Reported Meds & Prescriptions Reported Meds & Active Scripts Active Hydrocodone-Acetaminophen 7.5-325 mg Tab 1 Tab PO Q4H PRN Reported Lantus Inj (Insulin Glargine) 1,000 Unit/10 Ml Vial 20 Units SQ BID Hydroxyzine HCl 25 Mg Tab 25 Mg PO BID Risperidone 1 Mg Tab 1 Mg PO DAILY Novolog Inj (Insulin Aspart) 100 Unit/Ml Inj 100 Mg .ROUTE DAILY Meclizine (Meclizine HCl) 25 Mg Tab 25 Mg PO TID PRN Jardiance (Empagliflozin) 10 Mg Tab 10 Mg PO DAILY Gabapentin 300 Mg Cap 300 Mg PO TID Atorvastatin (Atorvastatin Calcium) 20 Mg Tab 80 Mg PO HS Amlodipine (Amlodipine Besylate) 10 Mg Tab 10 Mg PO DAILY Novolog Flexpen Inj (Insulin Aspart) 300 Unit/3 Ml Pen 1 Units SQ Review of Systems General / Constitutional: No: Fever Eyes: No: Visual changes HENT: No: Headaches Cardiovascular: No: Chest Pain or Discomfort Respiratory: No: Shortness of Breath Gastrointestinal: No: Abdominal Pain Genitourinary: No: Dysuria Musculoskeletal: No: Pain Skin: No Rash Neurologic: Positive: Change in Mentation, No: Weakness Psychiatric: No: Depression Endocrine: No: Polydipsia Hematologic/Lymphatic: No: Easy Bruising Physical Exam Narrative GENERAL: Well-nourished, well-developed patient in no apparent distress. SKIN: Focused skin assessment reveals no rash and nodules. Skin is Warm and dry. HEAD: Atraumatic. Normocephalic. EYES: Pupils equal and round. No scleral icterus. No injection or drainage. ENT: No nasal bleeding or discharge. Mucous membranes pink and moist. NECK: Trachea midline. No JVD. CARDIOVASCULAR: Regular rate and rhythm. No murmur appreciated. RESPIRATORY: No accessory muscle use. Clear to auscultation. Breath sounds equal bilaterally. GASTROINTESTINAL: Abdomen soft, non-tender, nondistended. Hepatic and splenic margins not palpable. MUSCULOSKELETAL: No obvious deformities. No clubbing. No cyanosis. No edema. NEUROLOGICAL: Awake but lethargic. No obvious cranial nerve deficits. Motor grossly within normal limits. Normal speech. PSYCHIATRIC: Appropriate mood and affect; insight and judgment poor . Data Data Last Documented VS Vital Signs Date Time Temp Pulse Resp B/P (MAP) Pulse Ox O2 Delivery O2 Flow Rate FiO2 08/14/17 17:37 74 16 121/67 (85) 97 08/14/17 16:11 Room Air 08/14/17 15:03 98.5 Orders Orders Blood Glucose (08/14/17 15:15) Iv Access Insert/Monitor (08/14/17 15:15) Complete Blood Count With Diff (08/14/17 15:15) Comprehensive Metabolic Panel (08/14/17 15:15) Urinalysis - C+S If Indicated (08/14/17 15:15) Lipase (08/14/17 15:56) Ct Brain W/O Iv Contrast(Rout) (08/14/17 ) Labs Laboratory Tests Test 08/14/17 15:20 08/14/17 15:25 White Blood Count 7.5 TH/MM3 Red Blood Count 4.95 MIL/MM3 Hemoglobin 15.1 GM/DL Hematocrit 44.2 % Mean Corpuscular Volume 89.4 FL Mean Corpuscular Hemoglobin 30.6 PG Mean Corpuscular Hemoglobin Concent 34.2 % Red Cell Distribution Width 15.9 % Platelet Count 205 TH/MM3 Mean Platelet Volume 8.8 FL Neutrophils (%) (Auto) 60.1 % Lymphocytes (%) (Auto) 28.3 % Monocytes (%) (Auto) 9.6 % Eosinophils (%) (Auto) 1.6 % Basophils (%) (Auto) 0.4 % Neutrophils # (Auto) 4.5 TH/MM3 Lymphocytes # (Auto) 2.1 TH/MM3 Monocytes # (Auto) 0.7 TH/MM3 Eosinophils # (Auto) 0.1 TH/MM3 Basophils # (Auto) 0.0 TH/MM3 CBC Comment DIFF FINAL Differential Comment Blood Urea Nitrogen 9 MG/DL Creatinine 0.57 MG/DL Random Glucose 170 MG/DL Total Protein 6.7 GM/DL Albumin 3.6 GM/DL Calcium Level 8.6 MG/DL Alkaline Phosphatase 142 U/L Aspartate Amino Transf (AST/SGOT) 10 U/L Alanine Aminotransferase (ALT/SGPT) 20 U/L Total Bilirubin 0.4 MG/DL Sodium Level 140 MEQ/L Potassium Level 3.6 MEQ/L Chloride Level 104 MEQ/L Carbon Dioxide Level 28.1 MEQ/L Anion Gap 8 MEQ/L Estimat Glomerular Filtration Rate 108 ML/MIN Urine Color LIGHT-YELLOW Urine Turbidity CLEAR Urine pH 7.5 Urine Specific Flushing 1.005 Urine Protein NEG mg/dL Urine Glucose (UA) 300 mg/dL Urine Ketones NEG mg/dL Urine Occult Blood NEG Urine Nitrite NEG Urine Bilirubin NEG Urine Urobilinogen LESS THAN 2.0 MG/DL Urine Leukocyte Esterase NEG Urine RBC 1 /hpf Urine WBC LESS THAN 1 /hpf Urine Squamous Epithelial Cells 1 /hpf Microscopic Urinalysis Comment CULT NOT INDICATED MDM Medical Decision Making Medical Screen Exam Complete: Yes Emergency Medical Condition: Yes Medical Record Reviewed: Yes Differential Diagnosis Hypoglycemic reaction, noncompliance, intracranial hemorrhage, hyponatremia Narrative Course I have reviewed the patient's electronic medical record. Of ordered extensive altered mental status workup. I can't just blame it on the hypoglycemia given when the sugar went up to 290 she did not perk up to normal status. This could be multifactorial including sedation from narcotic use amongst other things IV placed Current Accu-Chek 108. Will check it in one hour Labs sent Brain CT is negative Urine is clean CBC metabolic profiles are normal On recheck she seems more alert and awake I observed her for a good while of time and she is doing well. Accu-Chek at this time 109 Etiology of extensive altered mental status workup was negative but she does have known hypoglycemia which could've certainly caused her symptoms Discussed with her and daughter at bedside. Daughter admits she is very noncompliant with her diabetes. She should check and record it frequently. Stable for outpatient follow-up Diagnosis Primary Impression: Hypoglycemia Additional Impressions: DM (diabetes mellitus) Qualified Codes: E11.8 - Type 2 diabetes mellitus with unspecified complications; Z79.4 - nursing home (current) use of insulin Lethargy Additional Instructions: Check and record sugar frequently Be compliant with diabetes Med/Other Pt SpecificInfo: Other Disposition: 01 DISCHARGE HOME Condition: Stable Fransisco Gardner MD Aug 14, 2017 16:17
[2017-08-14 16:53] LABS: AUTOMATED NEUTROPHIL # 4.5 TH/MM3 (1.8-7.7); BASOPHIL % 0.4 % (0.0-2.0); EOSINOPHIL # 0.1 TH/MM3 (0-0.4); EOSINOPHIL % 1.6 % (0.0-4.0); HEMATOCRIT 44.2 % (35.0-46.0); HEMOGLOBIN 15.1 GM/DL (11.6-15.3); LYMPH % 28.3 % (9.0-44.0); LYMPHOCYTE # 2.1 TH/MM3 (1.0-4.8); MEAN CELL VOLUME 89.4 FL (80.0-100.0); MEAN CORPUSCULAR HEMOGLOBIN 30.6 PG (27.0-34.0); MEAN CORPUSCULAR HGB CONC 34.2 % (32.0-36.0); MEAN PLATELET VOLUME 8.8 FL (7.0-11.0); MONO % 9.6 % (0.0-8.0); MONOCYTE # 0.7 TH/MM3 (0-0.9); NEUT % 60.1 % (16.0-70.0); PLATELET COUNT 205 TH/MM3 (150-450); RED BLOOD COUNT 4.95 MIL/MM3 (4.00-5.30); RED CELL DISTRIBUTION WIDTH 15.9 % (11.6-17.2); WHITE BLOOD COUNT 7.5 TH/MM3 (4.0-11.0)
[2017-08-14 17:07] LABS: ALBUMIN 3.6 GM/DL (3.4-5.0); AST (GOT) 10 U/L (15-37); BICARBONATE 28.1 MEQ/L (21.0-32.0); BLOOD UREA NITROGEN 9 MG/DL (7-18); CALCIUM 8.6 MG/DL (8.5-10.1); CHLORIDE 104 MEQ/L (98-107); CREATININE 0.57 MG/DL (0.50-1.00); GLOMERULAR FILTRATION RATE 108 ML/MIN (>89); GLUCOSE,RANDOM 170 MG/DL (74-106); SODIUM (NA) 140 MEQ/L (136-145)
[2017-08-14 17:11] LABS: ALKALINE PHOSPHATASE 142 U/L (45-117); ALT (GPT) 20 U/L (10-53); TOTAL BILIRUBIN ADULT 0.4 MG/DL (0.2-1.0); TOTAL PROTEIN 6.7 GM/DL (6.4-8.2)
--- NOTE | 2017-08-14 17:14 | RADRPT ---
EXAM DATE/TIME: 08/14/2017 16:41 [facility] COMPARISON: CT BRAIN W/O CONTRAST, August 12, 2016, 23:53. INDICATIONS : Altered mental status RADIATION DOSE: 56.35 CTDIvol (mGy) MEDICAL HISTORY : Hypertension. Chronic obstructive pulmonary disease. Diabetes SURGICAL HISTORY : Hysterectomy. ENCOUNTER: Initial ACUITY: 1 day PAIN SCALE: 0/10 LOCATION: cranial TECHNIQUE: Multiple contiguous axial images were obtained of the head. Using automated exposure control and adj ustment of the mA and/or kV according to patient size, radiation dose was kept as low as reasonably a chievable to obtain optimal diagnostic quality images. DICOM format image data is available electro nically for review and comparison. FINDINGS: There is stable mild hygroma is prominence of the extra-axial sulcal spaces in the frontal regions. T here is patchy mild diminished attenuation periventricular white matter. There are no new findings. N othing suspicious for mass or hemorrhage. There is nothing to suggest acute infarction. Extracranial structures are stable and benign CONCLUSION: Stable brain appearance with no acute intracranial findings Jose Eduardo Nevarez MD on August 14, 2017 at 17:11 Board Certified Radiologist. This report was verified electronically.
[2017-08-14 17:18] LABS: BILIRUBIN, URINE NEG (NEG); BLOOD, URINE NEG (NEG); GLUCOSE,URINE 300 mg/dL (NEG); KETONE, URINE NEG (NEG); NITRITE,URINE NEG (NEG); PH, URINE 7.5 (5.0-8.5); SQUAMOUS EPITHELIAL CELL URINE 1 /hpf (0-5); URINE COLOR LIGHT-YELLOW (YELLW/STRAW); URINE LEUKOCYTE ESTERASE NEG (NEG)
[2017-08-14 17:37] VITALS: BP 121/67; PULSE 74; RESP 16; O2SAT 97
--- NOTE | 2017-08-15 11:31 | EKG ---
Date Performed: 08/14/2017 Time Performed: 18:32:24 PTAGE: 62 years EKG: Sinus rhythm NORMAL ECG Since the prior tracing, there has been no significant change PREVIOUS TRACING : 01/24/2017 05.23 DOCTOR: Simon Donis Interpretating Date/Time 08/15/2017 11:29:32
== END 2017-08-14 18:55 | disposition home or self-care (01) ==
LOC: NEDAMB 14:51 → NEPE 18:55
DX: E16.2 Hypoglycemia, unspecified (principal); E11.8 Type 2 diabetes mellitus with unspecified complications; R53.83 Other fatigue; J45.909 Unspecified asthma, uncomplicated; F32.9 Major depressive disorder, single episode, unspecified; E78.00 Pure hypercholesterolemia, unspecified; J44.9 Chronic obstructive pulmonary disease, unspecified; E11.9 Type 2 diabetes mellitus without complications; I10 Essential (primary) hypertension; F17.290 Nicotine dependence, other tobacco product, uncomplicated; Z88.5 Allergy status to narcotic agent; Z88.0 Allergy status to penicillin; Z79.01 Long term (current) use of anticoagulants; Z79.4 Long term (current) use of insulin
CPT/HCPCS: 70450; 80053; 81001; 83690; 85025; 93005; 99285